=== PATIENT | female | born 1960 | race African-American/Black ===

== ENCOUNTER 2020-01-06 09:12 | Outpatient (CLI) | payer MEDICARE, MEDICAID, SELFPAY ==
[2020-01-06 09:51] LABS: Alveolar/Arterial O2 Gradient 55.7 mmHg; Base Excess ABG 1.4 mEq/l (+/-2.0); Fractional Inspired Oxygen 21 %; HCO3 ABG 25.8 mEq/l (22.0-26.0); Oxygen Content ABG 15.3 %vol (16.0-22.0); Oxyhemoglobin 79.1 % THb (90.0-100.0); PCO2 ABG 39.9 mmHg (35.0-45.0); Total Hemoglobin 13.8 g/dL (12.0-18.0); pH ABG 7.428 (7.350-7.450)
[2020-01-06 09:58] LABS: Modified Allen's Test Pass; Oxygen Saturation ABG 83.5 % (95.0-100.0); PO2 ABG 46.3 mmHg (80.0-100.0); Site Drawn LEFT RADIAL
[2020-01-06 09:59] LABS: Device ROOM AIR
[2020-01-06 10:00] VITALS: PULSE 92; O2SAT 92
[2020-01-06 10:02] VITALS: PULSE 100; O2SAT 87
[2020-01-06 10:03] VITALS: PULSE 102; O2SAT 86
[2020-01-06 10:04] VITALS: PULSE 103; O2SAT 88
[2020-01-06 10:06] VITALS: PULSE 103; O2SAT 89
--- NOTE | 2020-01-06 14:39 | HOMEO2EVAL ---
Home Oxygen Evaluation RC: Home Oxygen (O2) Evaluation Start: 01/06/20 09:33 Freq: ONCE Status: Active Protocol: RPE Activity Type Activity Date Activity User E-Sign Co-Sign Detail Recorded Client Recorded Date Recorded By Document 01/06/20 10:00 KRM [id number] 01/06/20 14:38 KRM Document 01/06/20 10:02 KRM [id number] 01/06/20 14:38 KRM Document 01/06/20 10:03 KRM [email or web address] 01/06/20 14:38 KRM Document 01/06/20 10:04 KRM [email or web address] 01/06/20 14:38 KRM Document 01/06/20 10:06 KRM [id number] 01/06/20 14:38 KRM 01/06/20 01/06/20 01/06/20 10:00 10:02 10:03 Home O2 Evaluation Test Phase Resting Exercise Exercise Oxygen Delivery Room Air Room Air Nasal Cannula Oxygen Flow Rate (L/min) 1 Pulse Oximetry (90-100 %) 92 87 L 86 L Pulse Rate (60-100 beats/min) 92 100 102 H Activity Tolerance Ambulation Distance (feet) Home Oxygen Evaluation Comments Treatment Charges O2 Evaluation 01/06/20 01/06/20 10:04 10:06 Home O2 Evaluation Test Phase Exercise Exercise Oxygen Delivery Nasal Cannula Nasal Cannula Oxygen Flow Rate (L/min) 2 3 Pulse Oximetry (90-100 %) 88 L 89 L Pulse Rate (60-100 beats/min) 103 H 103 H Activity Tolerance Poor Ambulation Distance (feet) 0 Home Oxygen Evaluation Comments PT. WHEEL CHAIR BOUND. EXERCISE INCLUDED PT. WAVING ARMS AND CLAPPING. REQUIRES 3LPM W /ACTIVITY. Treatment Charges
--- NOTE | 2020-01-07 23:37 | WPDPFTINT ---
PFT Interpretation PFT Interpretation: DOS: 01/06/2020 REQUESTING: Raj Croft REASON FOR TESTING: chronic respiratory failure PULMONARY FUNCTION TESTS Spirometry: FEV1 severely decreased 41% predicted, 0.92 L increased to 1.03 L after bronchodilator; FVC severely decreased 54%; decreased FEV1% consistent with airflow obstruction. There is a non-statistically significant change with bronchodilator administration, 12% in the FEV1, which is less than 200 ml. Lung volumes: Not performed; patient is in a wheelchair, cannot get into the body box. Diffusion: DLCO 34%, severely reduced. Flow volume loop: Scooping of the expiratory limb. IMPRESSION: Severe obstructive ventilatory impairment with severe decrease in diffusion. Lung volumes were not obtained as the patient is wheelchair-bound. Lack of response to bronchodilator should not preclude use if clinically indicated. ARTERIAL BLOOD GAS: Room air pH 7.42, pCO2 39.9, pO2 46.3, HCO3 25.8, O2 saturation 83.5%, hemoglobin 13.8 g/dL. This is a mixed venous blood gas. The patient had a saturation in the 90% range by oximeter. Normal acid-base status. Kristan Croft MD
== END 2020-01-06 09:13 | disposition home or self-care (01) ==
PROVIDERS: Visit Provider Internal Medicine Critical Care Medicine
DX: J96.11 Chronic respiratory failure with hypoxia (principal); R94.2 Abnormal results of pulmonary function studies
CPT/HCPCS: 36600; 82805; 94060; 94618; 94729

== ENCOUNTER 2020-10-18 20:26 | Emergency (ER) | payer MEDICARE, MEDICAID, SELFPAY ==
[2020-10-18 20:22] VITALS: BP 111/79; PULSE 88; RESP 20; TEMP 36.3; O2SAT 99
[2020-10-18] MEDS: MECLIZINE HCL 25 MG TABLET PO (21:01)
[2020-10-18] MEDS: SODIUM CHLORIDE 0.9% IV 1,000 ML 999 ML IV CONT (21:02)
--- NOTE | 2020-10-18 21:03 | ED.GENADULT ---
HPI - General Adult General Chief complaint: Urogenital-Female Stated complaint: UTI Time Seen by Provider: 10/18/20 20:27 History of Present Illness HPI narrative: Patient is a 59-year-old female who presents ER with concerns for urinary tract infection. Reports over the last couple days her suprapubic catheter started draining cloudy yellow urine. There is chronically sediment located within her catheter which is not new for her. She is having no fevers or chills or sweats. No abdominal pain. Patient does report she is also been having some dizziness that is rotational for the last couple days. Worse with head movements. She does report some chronic sinus congestion. No ear pressure or tenderness. She has no fevers or chills or sweats. Related Data Home Medications Medication Instructions Recorded Confirmed apixaban 5 mg tablet 5 mg PO BID 10/11/19 ascorbic acid (vitamin C) 1,000 mg 1 gm PO DAILY 10/11/19 tablet atorvastatin 10 mg tablet 10 mg PO DAILY 10/11/19 ferrous sulfate 324 mg (65 mg 324 mg PO DAILY 10/11/19 iron) tablet,delayed release fluticasone propionate 50 1 spray NASAL DAILY 10/11/19 mcg/actuation nasal spray,suspension furosemide 40 mg tablet 40 mg PO QAM 10/11/19 gabapentin 600 mg tablet 600 mg PO DAILY 10/11/19 gentamicin 0.3 % eye drops 1 drop EACH EYE Q4H 10/11/19 montelukast 5 mg chewable tablet 10 mg PO DAILY 10/11/19 polyethylene glycol 3350 17 17 gm PO DAILY 10/11/19 gram/dose oral powder Allergies Allergy/AdvReac Type Severity Reaction Status Date / Time moxifloxacin Allergy Unknown Rash Unverified 10/18/20 20:31 strawberry Allergy Unknown Itching Verified 10/18/20 20:31 Contrast Media Allergy Unknown Rash Uncoded 10/18/20 20:31 MOXIFLOXACIN HCL Allergy Unknown Rash Uncoded 10/18/20 20:31 Review of Systems Review of Systems: All systems reviewed & are unremarkable except as noted in HPI and below Constitutional: Constitutional: Denies chills, Denies fever(s) and Denies weakness ENT: Reports dizziness, Reports nasal congestion and Denies sore throat Cardiovascular: Cardiovascular: Denies chest pain, Denies rapid heart rate and Denies radiating jaw, neck or arm pain Respiratory: Respiratory: Denies cough and Denies dyspnea Gastrointestinal: Gastrointestinal: Denies abdominal pain, Denies nausea and Denies vomiting Genitourinary: Comments: Discoloration of urine PMFSH Past Medical History Medical History (Updated 10/18/20 @ 23:02 by Royce Carrillo MD) Closed fracture of distal end of right tibia with routine healing Diabetic peripheral neuropathy associated with type 1 diabetes mellitus Left foot pain Other closed fracture of lower end of femur Painful orthopaedic hardware Surgical History Surgical History (Updated 10/18/20 @ 21:45 by Royce Carrillo MD) History of foot surgery Amputations to toes of bilateral feet Family History Family History Father Malignant neoplasm of prostate Other Family history of sleep apnea Social History Social History Smoking status: Former smoker Smoking end date: 11/27/96 Alcohol intake: never Exam Narrative: Exam Narrative: GENERAL: Well-appearing, well-nourished, and in no acute distress. HEAD: Normocephalic, atraumatic. EYES: PERRL and EOMI. ENT: TMs normal bilaterally. CHEST: Clear to auscultation. No respiratory distress. HEART: Regular rate and rhythm. Normal peripheral pulses. ABDOMEN: Soft, nontender, nondistended. Suprapubic catheter present with cloudy yellow urine and large amount of sediment within the tube. NEURO: Alert and oriented x3. PSYCH: Normal mood and affect. Course Course Emergency Course: Patient informed of results. Dizziness improved with meclizine. Discharge home with meclizine and Keflex. Vital Signs Vital signs: Vital Signs Temperature 97
[2020-10-18 21:04] LABS: Basophils Percent Auto 0.3 % (0.2-1.2); Eosinophils Absolute Auto 0.1 K/mm3 (0-0.3); Eosinophils Percent Auto 1.2 % (0-4.4); Hematocrit 41.4 % (37.0-47.0); Hemoglobin 13.6 g/dL (12.0-15.0); Immature Granulocyte Absolute 0.01 K/mm3 (0.00-0.031); Immature Granulocyte Percent A 0.1 % (0-0.5); Lymphocytes Absolute Auto 1.48 K/mm3 (0.9-3.2); Lymphocytes Percent Auto 16.6 % (18.3-44.2); Mean Corpuscular HGB Conc 32.9 g/dl (32-36); Mean Corpuscular Hemoglobin 29.3 pg (26-34); Mean Corpuscular Volume 89.2 fl (80-100); Mean Platelet Volume 8.2 fl (7.4-10.4); Monocytes Absolute Auto 0.8 K/mm3 (0.1-0.6); Monocytes Percent Auto 8.4 % (2.6-8.5); Neutrophils Absolute Auto 6.5 K/mm3 (1.3-6.7); Neutrophils Percent Auto 73.4 % (45.5-73.1); Platelet Count Result 285 k/mm3 (150-375); Red Blood Count 4.64 M/mm3 (4.2-5.4); Red Cell Distribution Width 15.2 % (11.5-14.5); White Blood Count 8.9 K/mm3 (4.5-10.0)
[2020-10-18 21:15] LABS: Add Urine Microscopic? YES; Appearance Urine Cloudy (Clear); Bacteria Urine 2+ /hpf; Bilirubin Urine Negative (Negative); Color Urine Yellow (Yellow); Glucose Urine UA Negative (Negative); Ketones Urine Negative (Negative); Leukocyte Esterase Ur 3+ LEU/UL (Negative); Mucus Urine Few /lpf; Nitrate Urine Positive (Negative); Protein Urine Negative (Negative); Specific Grav Ur 1.011 (1.001-1.035); Squamous Epithelial Cell Urine Few /hpf (Few); Urobilinogen Urine Negative mg/dL (<2.0); WBC Urine 16-20 /hpf
[2020-10-18 21:19] LABS: Anion Gap 7 mmol/L (8-16); Blood Urea Nitrogen 14 mg/dL (7-17); Calcium 9.4 mg/dL (8.4-10.2); Carbon Dioxide 29 mmol/L (22-30); Chloride 89 mmol/L (98-107); Estimated Glomerular Filt Rate > 60; Glucose 126 mg/dL (65-105); Sodium 125 mmol/L (137-145)
[2020-10-18 21:21] LABS: Blood Urine Negative (Negative)
--- NOTE | 2020-10-18 23:38 | PC.NURSE ---
called [facility] to request transport. ETA [id number]
--- NOTE | 2020-10-19 00:09 | PC.NURSE ---
[facility] called and updated ETA to [id number]
--- NOTE | 2020-10-19 00:56 | PC.NURSE ---
[facility] called and update ETA to [phone]
--- NOTE | 2020-10-19 01:52 | PC.NURSE ---
[facility] called and updated eta to [phone]
--- NOTE | 2020-10-19 01:57 | PC.NURSE ---
called [facility] to request transport - declined.
--- NOTE | 2020-10-19 01:58 | PC.NURSE ---
Called [facility] to request transport. declined
--- NOTE | 2020-10-19 02:02 | PC.NURSE ---
called [facility] to request transport. declined.
--- NOTE | 2020-10-19 02:44 | PC.NURSE ---
[facility] called and updated the ETA to [phone]
--- NOTE | 2020-10-19 04:13 | PC.NURSE ---
called [facility] for ETA update. ETA [phone]
[2020-10-19 04:43] VITALS: BP 117/65; PULSE 91; RESP 17; TEMP 36.6; O2SAT 97
[2020-10-19 05:11] VITALS: BP 117/65; PULSE 91; RESP 17; TEMP 36.6; O2SAT 91
== END 2020-10-19 05:13 | disposition home or self-care (01) ==
PROVIDERS: Emergency Provider Emergency Medicine
DX: N39.0 Urinary tract infection, site not specified (principal); R42 Dizziness and giddiness; E10.42 Type 1 diabetes mellitus with diabetic polyneuropathy; Z79.01 Long term (current) use of anticoagulants; Z87.891 Personal history of nicotine dependence
CPT/HCPCS: 36415; 80048; 81001; 85025; 87077; 87086; 87088; 87186; 96360; 99283; A9270; J7030

== ENCOUNTER 2020-12-15 23:39 | Emergency (ER) | payer MEDICARE, MEDICAID, SELFPAY ==
--- NOTE | ~2020-12-15 | XR_ITS ---
EXAMINATION: XR chest 1V portable EXAM DATE: 12/16/2020 00:13 INDICATION: Shortness of breath. TECHNIQUE: Portable AP frontal chest x-ray was obtained. Comparison is made to prior examination from 01/14/2019. FINDINGS: Patient is rotated to the right. The cardiomediastinal silhouette is prominent but magnifie d on this AP technique. Mild hyper aeration. There is some indistinct reticulation, could be mild pul monary edema. No confluent consolidation. There is no pneumothorax suspected. There are no pleural ef fusions. There is pulmonary vascular congestion. IMPRESSION: Cardiomegaly, congestion, possible mild pulmonary edema. No confluent consolidation. Reviewed, dictated and finalized at location A. PAPER INSPECTOR IMPRESSION: Cardiomegaly, congestion, possible mild pulmonary edema. No conflue nt consolidation.
[2020-12-15 23:45] VITALS: BP 139/100; PULSE 88; RESP 16; TEMP 36.7; O2SAT 96
--- NOTE | 2020-12-15 23:54 | ED.ANXIETY ---
HPI - Anxiety General Chief Complaint: Anxiety Stated Complaint: difficulty breathing Time Seen by Provider: 12/15/20 23:41 History of Present Illness HPI narrative: 60 yo female w/ h/o chronic respiratory failure, interstitial lung disease presents to the ED for SOB. She reports that she was feeling strange today. She reports dizziness and confusion. She called for EMS and when they arrived they found that her oxygen concentrator was not working. They placed her on their oxygen and her symptoms resolved. Related Data Home Medications Medication Instructions Recorded Confirmed apixaban 5 mg tablet 5 mg PO BID 10/11/19 ascorbic acid (vitamin C) 1,000 mg 1 gm PO DAILY 10/11/19 tablet atorvastatin 10 mg tablet 10 mg PO DAILY 10/11/19 ferrous sulfate 324 mg (65 mg 324 mg PO DAILY 10/11/19 iron) tablet,delayed release fluticasone propionate 50 1 spray NASAL DAILY 10/11/19 mcg/actuation nasal spray,suspension furosemide 40 mg tablet 40 mg PO QAM 10/11/19 gabapentin 600 mg tablet 600 mg PO DAILY 10/11/19 gentamicin 0.3 % eye drops 1 drop EACH EYE Q4H 10/11/19 montelukast 5 mg chewable tablet 10 mg PO DAILY 10/11/19 polyethylene glycol 3350 17 17 gm PO DAILY 10/11/19 gram/dose oral powder Allergies Allergy/AdvReac Type Severity Reaction Status Date / Time moxifloxacin Allergy Unknown Rash Unverified 10/18/20 20:31 strawberry Allergy Unknown Itching Verified 10/18/20 20:31 Contrast Media Allergy Unknown Rash Uncoded 10/18/20 20:31 MOXIFLOXACIN HCL Allergy Unknown Rash Uncoded 10/18/20 20:31 Review of Systems Review of Systems: All systems reviewed & are unremarkable except as noted in HPI and below Constitutional: Constitutional: Denies fever(s) Cardiovascular: Cardiovascular: Denies chest pain Respiratory: Respiratory: Reports dyspnea Neurologic: Reports confusion, Reports dizziness and Reports weakness Psychiatric: Psychiatric: Reports anxiety [facility] Past Medical History Medical History Closed fracture of distal end of right tibia with routine healing Diabetic peripheral neuropathy associated with type 1 diabetes mellitus Left foot pain Other closed fracture of lower end of femur Painful orthopaedic hardware Surgical History Surgical History History of foot surgery Amputations to toes of bilateral feet Family History Family History Father Malignant neoplasm of prostate Other Family history of sleep apnea Social History Social History Smoking status: Former smoker Smoking end date: 11/27/96 Alcohol intake: never Gender identity (if verbalized by the patient): Female Exam Const: General: no acute distress and alert Nutritional Appearance: obese Orientation/consciousness: patient oriented x3 HENMT: Head: normal to inspection Resp: Effort & Inspection: normal respiratory effort Auscultation: wheezes Cardio: Rate: regular rate Rhythm: regular rhythm Skin: General skin exam: normal color Neuro: General: patient oriented x3, moves all extremities and no focal motor deficits Speech: normal speech Gait exam (Neuro): Normal gait present Extrem: General: normal to inspection and no edema Course Vital Signs Vital signs: Vital Signs Temperature 36.7 C 12/15/20 23:45 Pulse Rate 88 12/15/20 23:45 Respiratory Rate 16 12/15/20 23:45 Blood Pressure 139/100 H 12/15/20 23:45 Pulse Oximetry 96 12/15/20 23:45 Temperature 37.0 C 12/16/20 01:49 Pulse Rate 81 12/16/20 01:49 Respiratory Rate 16 12/16/20 01:49 Blood Pressure 119/79 12/16/20 01:49 Pulse Oximetry 100 12/16/20 01:49 MDM - Anxiety MDM Narrative Medical decision making narrative: Symptoms resolved on baseline oxygen. She reports that she has othe
[2020-12-16 00:18] LABS: Glucose Point of Care 145 (65-105)
--- NOTE | 2020-12-16 01:02 | PC.NURSE ---
called [facility] to request transport. ETA [phone]
[2020-12-16 01:49] VITALS: BP 119/79; PULSE 81; RESP 16; TEMP 37; O2SAT 100
== END 2020-12-16 01:50 | disposition home or self-care (01) ==
PROVIDERS: Emergency Provider Emergency Medicine; PCP Family Medicine
DX: R06.02 Shortness of breath (principal); J96.10 Chronic respiratory failure, unspecified whether with hypoxia or hypercapnia; J84.9 Interstitial pulmonary disease, unspecified; E10.42 Type 1 diabetes mellitus with diabetic polyneuropathy; Z87.891 Personal history of nicotine dependence; I51.7 Cardiomegaly; R91.8 Other nonspecific abnormal finding of lung field; Z79.01 Long term (current) use of anticoagulants; Z99.81 Dependence on supplemental oxygen
CPT/HCPCS: 71045; 99283

== ENCOUNTER 2020-12-31 12:10 | Emergency (ER) | payer MEDICARE, MEDICAID, SELFPAY ==
[2020-12-31 12:23] VITALS: BP 131/84; PULSE 83; RESP 18; TEMP 36.4; O2SAT 100
--- NOTE | 2020-12-31 12:46 | PC.NURSE ---
EDP [facility]ELAT AT BEDSIDE FOR I&D, WOUND PACKED AND DRESSED BY DR WHYTE W/ GAUZE AND TAPE.
--- NOTE | 2020-12-31 12:51 | ED.GENADULT ---
HPI - General Adult General Chief complaint: Wound/Laceration Stated complaint: boil to inner leg Time Seen by Provider: 12/31/20 12:13 Source: patient Mode of arrival: EMS Limitations: no limitations History of Present Illness HPI narrative: A 60-year-old female comes into the emergency department with complaints of a boil in her groin. Patient states that it become exquisitely tender. She has seen her doctor already has received a prescription for Bactrim DS. She states that she has been taking the tablets but that her symptoms have not improved. She notes that she has a home health nurse who states that there was some pink drainage coming from the area. She notes that she has not tried to pop it or done anything else to but does note that there is some foul smell coming from the area. Related Data Home Medications Medication Instructions Recorded Confirmed apixaban 5 mg tablet 5 mg PO BID 10/11/19 ascorbic acid (vitamin C) 1,000 mg 1 gm PO DAILY 10/11/19 tablet atorvastatin 10 mg tablet 10 mg PO DAILY 10/11/19 ferrous sulfate 324 mg (65 mg 324 mg PO DAILY 10/11/19 iron) tablet,delayed release fluticasone propionate 50 1 spray NASAL DAILY 10/11/19 mcg/actuation nasal spray,suspension furosemide 40 mg tablet 40 mg PO QAM 10/11/19 gabapentin 600 mg tablet 600 mg PO DAILY 10/11/19 gentamicin 0.3 % eye drops 1 drop EACH EYE Q4H 10/11/19 montelukast 5 mg chewable tablet 10 mg PO DAILY 10/11/19 polyethylene glycol 3350 17 17 gm PO DAILY 10/11/19 gram/dose oral powder Allergies Allergy/AdvReac Type Severity Reaction Status Date / Time moxifloxacin Allergy Unknown Rash Unverified 10/18/20 20:31 strawberry Allergy Unknown Itching Verified 10/18/20 20:31 Contrast Media Allergy Unknown Rash Uncoded 10/18/20 20:31 MOXIFLOXACIN HCL Allergy Unknown Rash Uncoded 10/18/20 20:31 Review of Systems Review of Systems: Narrative: CONSTITUTIONAL: Denies fever, chills, or sweats. EYES: Denies visual changes, redness, or discharge. ENT: Denies rhinorrhea, congestion, sore throat, or otalgia. CARDIOVASCULAR: Denies chest pain, palpitations, or edema. RESPIRATORY: Denies cough or dyspnea. GASTROINTESTINAL: Denies abdominal pain, nausea, vomiting, or diarrhea. GENITOURINARY: Denies dysuria or hematuria. Groin abscess SKIN: Denies rash or itching. MUSCULOSKELETAL: Denies back pain, joint pain, or myalgia. NEUROLOGIC: Denies headache, numbness, dizziness, or weakness. PSYCHIATRIC: Denies anxiety or depression. [facility] Past Medical History Medical History Closed fracture of distal end of right tibia with routine healing Diabetic peripheral neuropathy associated with type 1 diabetes mellitus Left foot pain Other closed fracture of lower end of femur Painful orthopaedic hardware Surgical History Surgical History History of foot surgery Amputations to toes of bilateral feet Family History Family History Father Malignant neoplasm of prostate Other Family history of sleep apnea Social History Social History Smoking status: Former smoker Smoking end date: 11/27/96 Alcohol intake: never Gender identity (if verbalized by the patient): Female Exam Narrative: Exam Narrative: GENERAL: Well-appearing, well-nourished, and in no acute distress. HEAD: Normocephalic, atraumatic. EYES: PERRLA and EOMI. ENT: Nares clear, no rhinorrhea or epistaxis. Mucous membranes moist. Oropharynx without tonsillar hypertrophy exudate or other lesions. Bilateral TMs pearly galdamez nonbulging NECK: Supple. No adenopathy or masses. No carotid bruits or JVD CHEST: Clear to auscultation. No respiratory distress. No wheezes rales or rhonchi HEART: Regular rate and rhythm. No murmur heard. Normal peripheral pulses. ABDOMEN
--- NOTE | 2020-12-31 13:15 | PC.NURSE ---
PERSONNEL COUNSELOR [place] TO CALL FOR EMS AT THIS TIME.
[2020-12-31 13:54] VITALS: BP 133/75; PULSE 78; RESP 16; O2SAT 100
== END 2020-12-31 13:56 | disposition home or self-care (01) ==
LOC: ANHED 12:58
PROVIDERS: Emergency Provider Emergency Medicine; PCP Family Medicine
DX: L02.214 Cutaneous abscess of groin (principal); E10.42 Type 1 diabetes mellitus with diabetic polyneuropathy; Z87.891 Personal history of nicotine dependence
CPT/HCPCS: 10061; 99282

== ENCOUNTER 2021-05-21 18:07 | Emergency (ER) | payer MEDICARE, MEDICAID, SELFPAY ==
[2021-05-21 19:07] VITALS: BP 106/64; PULSE 91; RESP 18; TEMP 36.3; O2SAT 100
--- NOTE | 2021-05-21 19:12 | PC.NURSE ---
pt to triage, pt tells this RN ' I dont appreciate you talking has loud as you did to me out there Informed pt that i did not speak to her loudly and i apologize if she thinks i did. Pt states didn't you see everyone get quite and look when you talked to me? Pt then refuses to answer [employer] scale or how much she weighs. Pt then is complaining about sitting in wheelchair. I asked pt is she wanted to sit a regular seat and pt ignored this RN. Pt is wheeled back to triage where she called this RN a bitch.
--- NOTE | 2021-05-21 20:01 | PC.NURSE ---
Patient demanding her IV be removed, stated she is leaving and not waiting anymore. Patient IV removed and her family member took her home. Left ED at 1999.
== END 2021-05-21 21:22 | disposition left against medical advice (07) ==
LOC: ANHED 20:24
DX: Z53.21 Procedure and treatment not carried out due to patient leaving prior to being seen by health care provider (principal)
CPT/HCPCS: 99199

== ENCOUNTER 2021-08-19 15:55 | Outpatient (CLI) | payer MEDICARE, MEDICAID, SELFPAY ==
--- NOTE | ~2021-08-19 | XR_ITS ---
EXAMINATION: XR foot LT min 3V DATE: 08/19/2021 16:34 INDICATION: Left foot injury with pain at the second toe and heel. Gout. TECHNIQUE: Dorsoplantar, two oblique and lateral views of the left foot were obtained. COMPARISON: None. FINDINGS: Partial left second toe amputation across the neck of the proximal phalanx. Chronic osteotomies at th e head of the first metatarsal and of the shortened first proximal phalanx.. Third-fifth toes are cla wed. Suggestion of an old healed fracture deformity at the neck of the fifth metatarsal. No acute fra ctures identified. Polyarticular osteoarthritis, severe at the first metatarsophalangeal and second d istal interphalangeal joint, moderate severity at the majority the remaining interphalangeal joints a nd mild at the left ankle and multiple joints in the mid and hindfoot. Moderate-sized osteophyte at t he cephalad margin of the posterior tuberosity of the calcaneus. Diffuse osteopenia. Heterotopic ossi fications in the soft tissues lateral to the fifth metatarsal diaphysis. Diffuse soft tissue swelling about the left foot and ankle. IMPRESSION: 1. Chronic posttraumatic, postoperative and degenerative changes in the left foot as detailed above. No acute osseous abnormality. Reviewed, dictated and finalized at location A. IMPRESSION: 1. Chronic posttraumatic, postoperative and degenerative changes in the left fo ot as detailed above. No acute osseous abnormality.
== END 2021-08-19 15:56 | disposition home or self-care (01) ==
DX: S99.922A Unspecified injury of left foot, initial encounter (principal); M79.89 Other specified soft tissue disorders; M85.871 Other specified disorders of bone density and structure, right ankle and foot
CPT/HCPCS: 73630

== ENCOUNTER 2022-02-25 21:55 | Inpatient (IN) | payer MEDICARE, MEDICAID, SELFPAY ==
--- NOTE | ~2022-02-25 | XR_ITS ---
EXAMINATION: XR chest 1V portable DATE: 02/25/2022 23:04 INDICATION: Shortness of breath. TECHNIQUE: A single frontal view of the chest was obtained. COMPARISON: Chest single view 12/16/2020, CT abdomen and pelvis 08/02/2019 FINDINGS: The patient is rotated to her right. The lungs are hyperexpanded with a diffuse interstitia l pattern, consistent with emphysema. There are airspace opacities in right mid lower lung zone. No p neumothorax. Cardiomegaly is noted. IMPRESSION: 1. Airspace opacities in right midlung zone, which may be atelectasis, pneumonia, or pleural effusion in the minor fissure. 2. Emphysema. 3. Cardiomegaly. Reviewed, dictated and finalized at location A. IMPRESSION: 1. Airspace opacities in right midlung zone, which may be atelectasis, pneumoni a, or pleural effusion in the minor fissure. 2. Emphysema. 3. Cardiomegaly.
--- NOTE | ~2022-02-25 | XR_ITS ---
EXAMINATION: XR chest 1V portable DATE: 03/04/2022 06:25 INDICATION: Pneumonia. TECHNIQUE: A single frontal view of the chest was obtained. COMPARISON: Chest single view 02/27/2022, chest CT 02/26/2022 FINDINGS: There are lucencies in the lungs, consistent with emphysema. Again seen is volume loss of r ight hemithorax with rightward shift of the mediastinum. There are airspace opacities in the lower gerardo ng zones. No pleural effusion or pneumothorax. The heart size is normal. IMPRESSION: 1. Stable volume loss of right hemithorax and airspace opacities in the lower lung zones, consistent with atelectasis versus pneumonia. 2. Emphysema. Reviewed, dictated and finalized at location A. IMPRESSION: 1. Stable volume loss of right hemithorax and airspace opacities in the lower l nereyda zones, consistent with atelectasis versus pneumonia. 2. Emphysema.
--- NOTE | ~2022-02-25 | CT_ITS ---
EXAMINATION: CT diagnostic chest wo con DATE: 02/26/2022 00:53 INDICATION: Shortness of breath and productive cough TECHNIQUE: Computed tomography (CT) of the chest was performed without intravenous contrast. The dose -length product (DLP) was 1001.49 mGy-cm. Automated exposure control and iterative reconstruction twyla hnique were employed. COMPARISON: 09/11/2016, 05/27/2014 FINDINGS: There is moderate emphysema. There are airspace opacities of the right middle lobe. There i s a chronic 8 mm nodule of the right upper lobe adjacent to the minor fissure without significant miranda nge since 2013. There is no pleural effusion or pneumothorax. No pathologically enlarged thoracic lym ph nodes are identified. The heart size is normal. Calcified coronary artery atherosclerosis is noted . There is severe thoracic spondylosis. There are multiple masses of the partially imaged kidneys wit h attenuation ranging from fluid to that of hemorrhagic cysts and multiple intermediate attenuation m asses. IMPRESSION: 1. Airspace opacities of the right middle lobe consistent with atelectasis versus pneumonia. Radiogra phic follow-up to resolution after appropriate therapy is recommended. 2. Multiple indeterminate masses of the kidneys. Follow-up by CT or MRI without and with contrast is recommended. Reviewed, dictated and finalized at location A. IMPRESSION: 1. Airspace opacities of the right middle lobe consistent with atelectasis vers us pneumonia. Radiographic follow-up to resolution after appropriate therapy is recommended. 2. Multiple indeterminate masses of the kidneys. Follow-up by CT or MRI without and with contrast is recommended.
--- NOTE | ~2022-02-25 | XR_ITS ---
EXAMINATION: XR chest 1V portable INDICATION: Shortness of breath TECHNIQUE: Portable AP chest at 1018 hours COMPARISON: 02/26/2022 FINDINGS: Airspace opacities of the right middle and lower lobes persist but have improved. There is no pleural effusion or pneumothorax. The cardiomediastinal silhouette is normal. IMPRESSION: 1. Persistent but improving airspace opacities of the right middle and lower lobes, likely resolving atelectasis/pneumonia. Reviewed, dictated and finalized at location A. IMPRESSION: 1. Persistent but improving airspace opacities of the right middle and lower lo bes, likely resolving atelectasis/pneumonia.
[2022-02-25 22:04] VITALS: BP 117/61; PULSE 103; RESP 23; O2SAT 91
[2022-02-25 22:15] VITALS: O2SAT 91
[2022-02-25 22:40] LABS: Alveolar/Arterial O2 Gradient 114.2 mmHg; Base Excess ABG 5.7 mEq/l (+/-2.0); Carboxyhemoglobin 0.9 % THb (0-2.0); Fractional Inspired Oxygen 32 %; HCO3 ABG 31.3 mEq/l (22.0-26.0); Oxygen Content ABG 16.3 %vol (16.0-22.0); Oxygen Saturation ABG 89.3 % (95.0-100.0); PCO2 ABG 49.5 mmHg (35.0-45.0); PO2 FiO2 Ratio Arterial Blood 1.75 %; Reduced Hemoglobin 11.7 %THb (0-5.0); Total Hemoglobin 13.3 g/dL (12.0-18.0); pH ABG 7.419 (7.350-7.450)
[2022-02-25 22:42] LABS: Modified Allen's Test Pass; Oxyhemoglobin 87.4 % THb (90.0-100.0); Site Drawn LEFT RADIAL
[2022-02-25 22:43] LABS: Device NASAL CANNULA
--- NOTE | 2022-02-25 22:56 | ED.SOB ---
HPI - SOB/Dyspnea General Chief Complaint: Shortness of Breath/Dyspnea <Samantha Bolanos PA-C - Last Filed: 02/26/22 01:13> Stated Complaint: UNKNOWN <SUSI Mayer Last Filed: 02/26/22 01:13> Time Seen by Provider: 02/25/22 22:19 <SUSI Mayer Last Filed: 02/26/22 01:13> Source: patient <SUSI Mayer Last Filed: 02/26/22 01:13> Mode of arrival: EMS <SUSI Mayer Last Filed: 02/26/22 01:13> Limitations: no limitations <SUSI Mayer Last Filed: 02/26/22 01:13> History of Present Illness HPI Narrative: This is a 61-year-old female that presents to the emergency department for ongoing cold symptoms over the last 5 days. Reports a productive cough, congestion, and shortness of breath. Reports she had relative that was recently over with similar symptoms. She is not COVID or influenza vaccinated. She has history of COPD and is chronically on 3 to 4 L via nasal cannula. Was supposed to have an appointment with her soil conservation aide today. Denies fever or chest pain. <Samantha Bolanos PA-C - Last Filed: 02/26/22 01:13> Related Data Home Medications: Home Medications Medication Instructions Recorded Confirmed apixaban 5 mg tablet 5 mg PO Q12H 10/11/19 02/26/22 ascorbic acid (vitamin C) 1,000 mg 1 gm PO TID 10/11/19 02/26/22 tablet atorvastatin 10 mg tablet 10 mg PO HS 10/11/19 02/26/22 ferrous sulfate 324 mg (65 mg 324 mg PO HS 10/11/19 02/26/22 iron) tablet,delayed release furosemide 40 mg tablet 40 mg PO TID 10/11/19 02/26/22 gabapentin 600 mg tablet 600 mg PO QID 10/11/19 02/26/22 gentamicin 0.3 % eye drops 1 drop EACH EYE DAILY 10/11/19 02/26/22 montelukast 5 mg chewable tablet 10 mg PO DAILY 10/11/19 02/26/22 polyethylene glycol 3350 17 17 gm PO DAILY 10/11/19 02/26/22 gram/dose oral powder baclofen 10 mg PO QID 02/26/22 02/26/22 baclofen 20 mg PO QID 02/26/22 02/26/22 cranberry 500 mg PO 1200 02/26/22 02/26/22 fluconazole 150 mg PO TID 02/26/22 02/26/22 gabapentin 400 mg PO QID 02/26/22 02/26/22 lorazepam 1 mg PO QID PRN 02/26/22 02/26/22 metoprolol succinate 25 mg PO 1200 02/26/22 02/26/22 omeprazole 20 mg PO DAILY 02/26/22 02/26/22 oxycodone-acetaminophen 10 - 325 tablet PO TID PRN 02/26/22 02/26/22 potassium chloride 20 meq PO Q12H 02/26/22 02/26/22 sitagliptin [Januvia] 100 mg PO DAILY 02/26/22 02/26/22 tramadol 50 mg PO QID PRN 02/26/22 02/26/22 verapamil 180 mg PO HS 02/26/22 02/26/22 vitamin B complex 1 tablet PO DAILY 02/26/22 02/26/22 <Samantha Bolanos PA-C - Last Filed: 02/26/22 01:13> Allergies/Adverse Reactions: Allergies Allergy/AdvReac Type Severity Reaction Status Date / Time moxifloxacin Allergy Unknown Rash Verified 02/25/22 23:47 strawberry Allergy Unknown Itching Verified 02/25/22 23:47 Contrast Media Allergy Unknown Rash Uncoded 02/25/22 23:47 MOXIFLOXACIN HCL Allergy Unknown Rash Uncoded 02/25/22 23:47 <Samantha Bolanos PA-C - Last Filed: 02/26/22 01:13> Review of Systems Review of Systems: CONSTITUTIONAL: Denies fever ENT: Reports congestion CARDIOVASCULAR: Denies chest pain, or edema. RESPIRATORY: Reports cough and dyspnea. <SUSI Mayer Last Filed: 02/26/22 01:13> All systems reviewed & are unremarkable except as noted in HPI and below <Samantha Bolanos PA-C - Last Filed: 02/26/22 01:13> [facility] Past Medical History Medical History: Medical History Closed fracture of distal end of right tibia with routine healing Diabetic peripheral neuropathy associated with type 1 diabetes mellitus Left foot pain Other closed fracture of lower end of femur Painful orthopaedic hardware <Samantha Bolanos PA-C - Last Filed: 02/26/22 01:13> Surgical History Surgical History: Surgical History History of foot surgery Amputations to toes of bilateral feet <Samantha
[2022-02-25] MEDS: IPRATROPIUM BR 0.02% INH SOLN 0.5 MG/2.5 ML VIAL INHALATION (23:06)
[2022-02-25] MEDS: ALBUTEROL SULFATE NEB 2.5 MG/0.5 ML INH 5 MG INHALATION (23:06)
[2022-02-25 23:10] VITALS: PULSE 91; RESP 16
[2022-02-25 23:15] VITALS: PULSE 83; RESP 13
[2022-02-25] MEDS: methylPREDNISolone SOD SUCC 125 MG VIAL IV PUSH (23:47)
[2022-02-26] VITALS (25 sets, daily range): BP systolic 101–152; BP diastolic 60–83; PULSE 78–99; RESP 16–26; TEMP 35.9–36.6; O2SAT 92–100; BMI 44.1
[2022-02-26 00:03] LABS: Alanine Aminotransferase 18 U/L (4-35); Albumin Level 4.2 g/dL (3.5-5.1); Alkaline Phosphatase 115 U/L (38-126); Anion Gap 7 mmol/L (8-16); Aspartate Amino Transferase 39 U/L (14-36); Bilirubin,Total 0.2 mg/dL (0.2-1.3); Blood Urea Nitrogen 11 mg/dL (7-17); Calcium 9.1 mg/dL (8.4-10.2); Carbon Dioxide 32 mmol/L (22-30); Chloride 94 mmol/L (98-107); Estimated CRCL calculation 105 ml/min; Estimated Glomerular Filt Rate > 60; Glucose 152 mg/dL (65-110); Potassium 4.1 mmol/L (3.4-5.0); Sodium 133 mmol/L (137-145)
[2022-02-26 00:09] LABS: Partial Thromboplastin Time 27.8 SECONDS (22.3-36.8); Prothrombin Time 13.1 Seconds (11.1-14.7)
[2022-02-26 00:11] LABS: Basophils Percent Auto 0.3 % (0.2-1.2); Eosinophils Absolute Auto 0.1 K/mm3 (0-0.3); Eosinophils Percent Auto 0.5 % (0-4.4); Hematocrit 41.7 % (37.0-47.0); Hemoglobin 12.9 g/dL (12.0-15.0); Immature Granulocyte Absolute 0.03 K/mm3 (0.00-0.031); Immature Granulocyte Percent A 0.3 % (0-0.5); Lymphocytes Absolute Auto 1.12 K/mm3 (0.9-3.2); Lymphocytes Percent Auto 11.7 % (18.3-44.2); Mean Corpuscular HGB Conc 30.9 g/dl (32-36); Mean Corpuscular Hemoglobin 28.6 pg (26-34); Mean Corpuscular Volume 92.5 fl (80-100); Mean Platelet Volume 8.5 fl (7.4-10.4); Monocytes Absolute Auto 0.8 K/mm3 (0.1-0.6); Monocytes Percent Auto 7.8 % (2.6-8.5); Neutrophils Absolute Auto 7.6 K/mm3 (1.3-6.7); Neutrophils Percent Auto 79.4 % (45.5-73.1); Platelet Count Result 355 k/mm3 (150-375); Red Blood Count 4.51 M/mm3 (4.2-5.4); Red Cell Distribution Width 14.9 % (11.5-14.5); White Blood Count 9.6 K/mm3 (4.5-10.0)
[2022-02-26 00:15] LABS: NT Pro B Type Natriuretic Pept 128 pg/mL (5-100)
[2022-02-26] MEDS: ALBUTEROL SULFATE NEB 2.5 MG/0.5 ML INH 5 MG INHALATION (00:18)
[2022-02-26] MEDS: IPRATROPIUM BR 0.02% INH SOLN 0.5 MG/2.5 ML VIAL INHALATION ×4 (00:18→23:52)
[2022-02-26] MEDS: LORazepam INJ (*CRX) 2 MG/ML VIAL 0.5 MG IV PUSH (00:24)
[2022-02-26 00:31] LABS: Influenza A QL RT-PCR Negative (Negative); Influenza B QL RT-PCR Negative (Negative); SARS-CoV-2 RNA PCR Negative
--- NOTE | 2022-02-26 00:32 | ECG_ITS ---
Measurements Intervals [place] Rate: 91 P: 56 PA: 152 QRS: 60 QRSD: 102 T: 73 QT: 396 QTc: 487 Interpretive Statements SINUS RHYTHM INCOMPLETE RIGHT BUNDLE BRANCH BLOCK [90+ ms QRS DURATION, TERMINAL R IN V1/V2, 40+ ms S IN I/aVL/V4/V5/V6] BASELINE ARTIFACT BORDERLINE ECG COMPARED TO ECG 01/15/2019 07:15:09 NO SIGNIFICANT CHANGES Electronically Signed On 02-26-2022 16:45:33 CDT by Brett Crandall M.D.
--- NOTE | 2022-02-26 02:07 | ADMGEN ---
This patient, Ke Garnica, was admitted to IMU Room 203-01. Patient/family oriented to hospital policies and general routines including ID bracelet, bed and alarms, visiting hours, pain management, procedures, bathroom and other care routines, personal items, smoking policy, room service/diet, and visiting hours. Information on how to activate the Rapid Response Team has been discussed. Patient/Family are encouraged to report perceived risks to care and to ask questions if they do not understand what they are told or what they should do.
[2022-02-26] MEDS: WATER FOR IRRIGATION, STERILE 1,000 ML BOTTLE 1000 ML (02:27)
[2022-02-26 03:03] LABS: Add Urine Microscopic? YES; Appearance Urine Cloudy (Clear); Bacteria Urine 1+ /hpf; Bilirubin Urine Negative (Negative); Color Urine Amber (Yellow); Glucose Urine UA Negative (Negative); Ketones Urine Negative (Negative); Leukocyte Esterase Ur 3+ LEU/UL (Negative); Nitrate Urine Negative (Negative); Protein Urine 1+ mg/dL (Negative); Specific Grav Ur 1.018 (1.001-1.035); Squamous Epithelial Cell Urine Few /hpf (Few); Urobilinogen Urine Negative mg/dL (<2.0); WBC Urine >75 /hpf
[2022-02-26 03:05] LABS: Blood Urine Negative (Negative)
[2022-02-26] MEDS: ALBUTEROL SULFATE NEB 2.5 MG/0.5 ML INH INHALATION ×3 (08:26→23:52)
--- NOTE | 2022-02-26 08:43 | PM.IMPN ---
Progress Note: A&P Assessment and Plan (1) Acute on chronic respiratory failure: Qualifiers: Respiratory failure complication: hypoxia Qualified Code(s): J96.21 - Acute and chronic respiratory failure with hypoxia Code(s): J96.20 - Acute and chronic respiratory failure, unspecified whether with hypoxia or hypercapnia Status: Acute Assessment and Plan: Multifactorial most likely related to community-acquired pneumonia COPD exacerbation CHF exacerbation pulmonary hypertension diuresis nebulizer treatment IV steroid antibiotics (2) Community acquired pneumonia: Qualifiers: Laterality: right Lung location: lower lobe of lung Qualified Code(s): J18.9 - Pneumonia, unspecified organism Code(s): J18.9 - Pneumonia, unspecified organism Status: Acute Assessment and Plan: IV azithromycin Follow-up blood culture (3) Pulmonary hypertension: Code(s): I27.20 - Pulmonary hypertension, unspecified Status: Acute Assessment and Plan: Continue home treatment (4) Acute exacerbation of CHF (congestive heart failure): Code(s): I50.9 - Heart failure, unspecified Status: Acute Assessment and Plan: Lasix monitor intake and output daily weight Additional Plan Currently on verapamil and anticoagulated Subjective Date/time seen: 02/26/22 08:43 Interval history: 61 years old female with past medical history of COPD presented to the hospital with shortness of breath was found to have acute hypoxemic respiratory failure secondary to COPD exacerbation CHF exacerbation and community-acquired pneumonia treated with nebulizer treatment steroid antibiotic At home patient use 4 L oxygen Patient is short of breath on oxygen Patient denies fever headache chest pain I am seeing the patient for shortness of breath Exam Narrative: Alert Chest bilateral wheezing crackles Abdomen nontender nondistended CVS S1 + S2 Bilateral lower extremities positive edema Objective Data Vital Signs Vital Signs: Vital Signs - 24 hr 02/26/22 11:02 02/26/22 12:00 02/26/22 12:45 Temperature 97.2 F L Pulse Rate 99 84 89 Respiratory Rate 26 H 20 Blood Pressure 152/83 H Pulse Oximetry 95 02/26/22 13:10 02/26/22 15:36 02/26/22 16:00 Temperature 96.6 F L Pulse Rate 88 92 92 Respiratory Rate 20 20 Blood Pressure 148/62 H Pulse Oximetry 95 94 02/26/22 20:00 02/26/22 20:04 02/26/22 20:14 Temperature Pulse Rate 90 78 78 Respiratory Rate 23 H 20 20 Blood Pressure Pulse Oximetry 100 02/26/22 22:00 02/26/22 23:13 02/26/22 23:45 Temperature 97.9 F Pulse Rate 78 80 78 Respiratory Rate 16 22 H 20 Blood Pressure 121/65 Pulse Oximetry 100 100 02/26/22 23:53 02/26/22 23:55 02/27/22 00:00 Temperature 96.9 F L Pulse Rate 78 78 71 Respiratory Rate 20 20 16 Blood Pressure 125/80 Pulse Oximetry 97 100 02/27/22 02:12 02/27/22 03:20 02/27/22 03:30 Temperature Pulse Rate 88 76 76 Respiratory Rate 18 18 18 Blood Pressure Pulse Oximetry 97 97 02/27/22 04:00 02/27/22 08:37 02/27/22 08:39 Temperature Pulse Rate 78 83 86 Respiratory Rate 18 18 Blood Pressure Pulse Oximetry 97 Intake/Output Intake/Output: Intake & Output 02/24/22 02/25/22 02/26/22 02/27/22 23:59 23:59 23:59 23:59 Intake Total 1934 500 Output Total 2600 1000 Balance -666 -500 Meds/Results Medications: Active Medications Generic Name Dose Route Start Last Admin Trade Name Freq PRN Reason Stop Dose Admin Albuterol 2.5 mg 02/26/22 08:00 02/27/22 08:33 Albuterol Sulfate Neb 2.5 Mg/0.5 Ml Inh INHALATION 2.5 mg Q4HRT COTY Administration Apixaban 5 mg 02/26/22 09:15 02/26/22 21:08 Apixaban 5 Mg Tablet PO 5 mg Q12HR COTY Administration Ascorbic Acid 1,000 mg 02/26/22 09:00 02/26/22 17:46 Ascorbic Acid 500 Mg Tablet PO 1,000 mg TID COTY Administration Atorvastatin Calc
[2022-02-26] MEDS: ASCORBIC ACID 500 MG TABLET 1000 MG PO ×3 (09:12→17:46)
[2022-02-26] MEDS: PANTOPRAZOLE 40 MG TABLET PO (09:12)
[2022-02-26] MEDS: FUROSEMIDE 40 MG TABLET PO ×3 (09:13→17:46)
[2022-02-26] MEDS: GENTAMICIN SULFATE 0.3% OP SOL 5 ML BTL 1 DROP EACH EYE (09:13)
[2022-02-26] MEDS: polyethylene glycoL 3350 17 GM POWD.PACK PO (09:13)
[2022-02-26] MEDS: MONTELUKAST SODIUM 10 MG TABLET PO (09:13)
[2022-02-26] MEDS: BACLOFEN 10 MG TABLET PO (09:17)
[2022-02-26] MEDS: BACLOFEN 10 MG TABLET 20 MG PO (09:17)
[2022-02-26] MEDS: GABAPENTIN 400 MG CAPSULE PO ×4 (09:23→20:00)
[2022-02-26] MEDS: POTASSIUM CHLORIDE 20 MEQ TABLET.ER PO ×2 (09:24→20:00)
[2022-02-26] MEDS: APIXABAN 5 MG TABLET PO ×2 (09:24→21:08)
[2022-02-26] MEDS: METOPROLOL SUCCINATE EXT REL 25 MG TABCR PO (11:02)
[2022-02-26] MEDS: GABAPENTIN 300 MG CAPSULE 600 MG PO ×4 (11:02→20:02)
[2022-02-26 12:35] LABS: Glucose Point of Care 174 mg/dl (65-105)
[2022-02-26] MEDS: BACLOFEN 10 MG TABLET 30 MG PO ×3 (12:44→20:01)
--- NOTE | 2022-02-26 12:58 | PC.NURSE ---
This patient, Ke Garnica, was transferred to [ [id number]] on 02/26/22 at 1258. Personal belongings sent with patient. Report given to [ AKANKSHA Ricketts @ [phone]]. Appropriate documentation sent with patient.
[2022-02-26 16:29] LABS: Glucose Point of Care 206 mg/dl (65-105)
[2022-02-26] MEDS: traMADol HCL (*CRX) 50 MG TABLET PO (17:08)
[2022-02-26] MEDS: VERAPAMIL HCL 180 MG TABLET ER PO (20:00)
[2022-02-26] MEDS: ATORVASTATIN 10 MG TABLET PO (20:01)
[2022-02-26 20:38] LABS: Glucose Point of Care 171 mg/dl (65-105)
[2022-02-26] MEDS: FERROUS SULFATE 324 MG TABLET PO (21:08)
[2022-02-27] VITALS (21 sets, daily range): BP systolic 109–126; BP diastolic 58–80; PULSE 67–92; RESP 16–25; TEMP 35.9–36.1; O2SAT 97–100
[2022-02-27] MEDS: IPRATROPIUM BR 0.02% INH SOLN 0.5 MG/2.5 ML VIAL INHALATION ×5 (03:30→20:12)
[2022-02-27] MEDS: ALBUTEROL SULFATE NEB 2.5 MG/0.5 ML INH INHALATION ×5 (03:30→20:12)
[2022-02-27 08:12] LABS: Glucose Point of Care 133 mg/dl (65-105)
--- NOTE | 2022-02-27 08:35 | PM.IMPN ---
Progress Note: A&P Assessment and Plan (1) Acute on chronic respiratory failure: Qualifiers: Respiratory failure complication: hypoxia Qualified Code(s): J96.21 - Acute and chronic respiratory failure with hypoxia Code(s): J96.20 - Acute and chronic respiratory failure, unspecified whether with hypoxia or hypercapnia Status: Acute Assessment and Plan: Multifactorial most likely related to community-acquired pneumonia COPD exacerbation CHF exacerbation pulmonary hypertension IV diuresis nebulizer treatment IV steroid IV antibiotics (2) Community acquired pneumonia: Qualifiers: Laterality: right Lung location: lower lobe of lung Qualified Code(s): J18.9 - Pneumonia, unspecified organism Code(s): J18.9 - Pneumonia, unspecified organism Status: Acute Assessment and Plan: IV Rocephin IV azithromycin Repeat chest x-ray today Follow-up blood culture (3) Pulmonary hypertension: Code(s): I27.20 - Pulmonary hypertension, unspecified Status: Acute Assessment and Plan: Continue home treatment (4) Acute exacerbation of CHF (congestive heart failure): Code(s): I50.9 - Heart failure, unspecified Status: Acute Assessment and Plan: IV Lasix monitor intake and output daily weight Additional Plan Currently on verapamil and anticoagulated Subjective Date/time seen: 02/27/22 08:35 Interval history: 61 years old female with past medical history of COPD presented to the hospital with shortness of breath was found to have acute hypoxemic respiratory failure secondary to COPD exacerbation CHF exacerbation and community-acquired pneumonia treated with nebulizer treatment steroid antibiotic At home patient use 4 L oxygen Patient feels weak short of breath Patient denies fever headache chest pain I am seeing the patient for shortness of breath Exam Narrative: Alert Chest bilateral wheezing crackles Abdomen nontender nondistended CVS S1 + S2 Bilateral lower extremities positive edema Objective Data Vital Signs Vital Signs: Vital Signs - 24 hr 02/26/22 11:02 02/26/22 12:00 02/26/22 12:45 Temperature 97.2 F L Pulse Rate 99 84 89 Respiratory Rate 26 H 20 Blood Pressure 152/83 H Pulse Oximetry 95 02/26/22 13:10 02/26/22 15:36 02/26/22 16:00 Temperature 96.6 F L Pulse Rate 88 92 92 Respiratory Rate 20 20 Blood Pressure 148/62 H Pulse Oximetry 95 94 02/26/22 20:00 02/26/22 20:04 02/26/22 20:14 Temperature Pulse Rate 90 78 78 Respiratory Rate 23 H 20 20 Blood Pressure Pulse Oximetry 100 02/26/22 22:00 02/26/22 23:13 02/26/22 23:45 Temperature 97.9 F Pulse Rate 78 80 78 Respiratory Rate 16 22 H 20 Blood Pressure 121/65 Pulse Oximetry 100 100 02/26/22 23:53 02/26/22 23:55 02/27/22 00:00 Temperature 96.9 F L Pulse Rate 78 78 71 Respiratory Rate 20 20 16 Blood Pressure 125/80 Pulse Oximetry 97 100 02/27/22 02:12 02/27/22 03:20 02/27/22 03:30 Temperature Pulse Rate 88 76 76 Respiratory Rate 18 18 18 Blood Pressure Pulse Oximetry 97 97 02/27/22 04:00 Temperature Pulse Rate 78 Respiratory Rate Blood Pressure Pulse Oximetry Intake/Output Intake/Output: Intake & Output 02/24/22 02/25/22 02/26/22 02/27/22 23:59 23:59 23:59 23:59 Intake Total 1934 500 Output Total 2600 1000 Balance -666 -500 Meds/Results Medications: Active Medications Generic Name Dose Route Start Last Admin Trade Name Freq PRN Reason Stop Dose Admin Albuterol 2.5 mg 02/26/22 08:00 02/27/22 08:33 Albuterol Sulfate Neb 2.5 Mg/0.5 Ml Inh INHALATION 2.5 mg Q4HRT COTY Administration Apixaban 5 mg 02/26/22 09:15 02/26/22 21:08 Apixaban 5 Mg Tablet PO 5 mg Q12HR COTY Administration Ascorbic Acid 1,000 mg 02/26/22 09:00 02/26/22 17:46 Ascorbic Acid 500 Mg Tablet PO 1,000 mg TID COTY Administration Atorvastatin Calcium 10 mg
[2022-02-27] MEDS: polyethylene glycoL 3350 17 GM POWD.PACK PO (09:19)
[2022-02-27] MEDS: GABAPENTIN 300 MG CAPSULE 600 MG PO ×4 (09:20→21:02)
[2022-02-27] MEDS: BACLOFEN 10 MG TABLET 30 MG PO ×4 (09:20→21:02)
[2022-02-27] MEDS: GABAPENTIN 400 MG CAPSULE PO ×4 (09:21→21:03)
[2022-02-27] MEDS: ASCORBIC ACID 500 MG TABLET 1000 MG PO ×3 (09:21→17:20)
[2022-02-27] MEDS: PANTOPRAZOLE 40 MG TABLET PO (09:22)
[2022-02-27] MEDS: APIXABAN 5 MG TABLET PO ×2 (09:22→21:02)
[2022-02-27] MEDS: MONTELUKAST SODIUM 10 MG TABLET PO (09:22)
[2022-02-27] MEDS: POTASSIUM CHLORIDE 20 MEQ TABLET.ER PO ×2 (09:24→21:02)
[2022-02-27] MEDS: guaiFENesin/DEXTROMETHORPHAN 10 ML UDC PO (09:28)
[2022-02-27] MEDS: cefTRIAXone 2 GM in SODIUM CHLORIDE 0.9% IV 100 ML 200 ML IVPB (09:30)
[2022-02-27] MEDS: FUROSEMIDE INJ 40 MG/4 ML VIAL IV PUSH ×2 (09:31→17:19)
[2022-02-27] MEDS: methylPREDNISolone SOD SUCC 40 MG VIAL IV PUSH ×2 (09:31→17:20)
[2022-02-27] MEDS: GENTAMICIN SULFATE 0.3% OP SOL 5 ML BTL 1 DROP EACH EYE (09:31)
[2022-02-27 09:33] LABS: Basophils Percent Auto 0.5 % (0.2-1.2); Eosinophils Percent Auto 0.5 % (0-4.4); Hemoglobin 12.9 g/dL (12.0-15.0); Immature Granulocyte Absolute 0.02 K/mm3 (0.00-0.031); Immature Granulocyte Percent A 0.2 % (0-0.5); Lymphocytes Absolute Auto 2.38 K/mm3 (0.9-3.2); Lymphocytes Percent Auto 27.5 % (18.3-44.2); Mean Corpuscular HGB Conc 30.7 g/dl (32-36); Mean Corpuscular Hemoglobin 28.6 pg (26-34); Mean Corpuscular Volume 93.1 fl (80-100); Mean Platelet Volume 8.5 fl (7.4-10.4); Monocytes Absolute Auto 0.8 K/mm3 (0.1-0.6); Monocytes Percent Auto 8.9 % (2.6-8.5); Neutrophils Absolute Auto 5.4 K/mm3 (1.3-6.7); Neutrophils Percent Auto 62.4 % (45.5-73.1); Platelet Count Result 347 k/mm3 (150-375); Red Blood Count 4.51 M/mm3 (4.2-5.4); Red Cell Distribution Width 15.1 % (11.5-14.5); White Blood Count 8.7 K/mm3 (4.5-10.0)
[2022-02-27 09:48] LABS: Alanine Aminotransferase 21 U/L (4-35); Albumin Level 4.1 g/dL (3.5-5.1); Alkaline Phosphatase 104 U/L (38-126); Anion Gap 5 mmol/L (8-16); Aspartate Amino Transferase 32 U/L (14-36); Bilirubin,Total 0.2 mg/dL (0.2-1.3); Blood Urea Nitrogen 10 mg/dL (7-17); Calcium 9.2 mg/dL (8.4-10.2); Carbon Dioxide 32 mmol/L (22-30); Chloride 94 mmol/L (98-107); Estimated CRCL calculation 124 ml/min; Estimated Glomerular Filt Rate > 60; Glucose 138 mg/dL (65-110); Potassium 3.8 mmol/L (3.4-5.0); Sodium 131 mmol/L (137-145)
[2022-02-27] MEDS: traMADol HCL (*CRX) 50 MG TABLET PO ×2 (09:48→17:41)
[2022-02-27 11:56] LABS: Glucose Point of Care 202 mg/dl (65-105)
[2022-02-27] MEDS: METOPROLOL SUCCINATE EXT REL 25 MG TABCR PO (12:40)
[2022-02-27 17:03] LABS: Glucose Point of Care 187 mg/dl (65-105)
[2022-02-27] MEDS: FLUCONAZOLE 150 MG TABLET PO (19:21)
[2022-02-27] MEDS: diphenhydrAMINE HCl CAP 25 MG CAPSULE PO (19:21)
[2022-02-27] MEDS: oxyCODONE/ACETAMINOPHEN (*CRX) 5-325 MG TABLET 1 TABLET PO (19:25)
[2022-02-27] MEDS: oxyCODONE HCL (*CRX) 5 MG TAB IR PO (19:26)
[2022-02-27] MEDS: FERROUS SULFATE 324 MG TABLET PO (21:01)
[2022-02-27] MEDS: ATORVASTATIN 10 MG TABLET PO (21:03)
[2022-02-27] MEDS: VERAPAMIL HCL 180 MG TABLET ER PO (21:04)
[2022-02-27 21:33] LABS: Glucose Point of Care 217 mg/dl (65-105)
[2022-02-28] VITALS (23 sets, daily range): BP systolic 119–130; BP diastolic 60–79; PULSE 57–94; RESP 16–21; TEMP 35.8–36.2; O2SAT 91–100
[2022-02-28] MEDS: methylPREDNISolone SOD SUCC 40 MG VIAL IV PUSH ×3 (00:11→17:23)
[2022-02-28] MEDS: ALBUTEROL SULFATE NEB 2.5 MG/0.5 ML INH INHALATION ×6 (00:14→21:22)
[2022-02-28] MEDS: IPRATROPIUM BR 0.02% INH SOLN 0.5 MG/2.5 ML VIAL INHALATION ×6 (00:14→21:22)
[2022-02-28 01:19] LABS: Glucose Point of Care 202 mg/dl (65-105)
[2022-02-28] MEDS: LORazepam (*CRX) 1 MG TABLET PO (01:22)
[2022-02-28 06:09] LABS: Basophils Percent Auto 0.1 % (0.2-1.2); Hematocrit 41.6 % (37.0-47.0); Hemoglobin 12.8 g/dL (12.0-15.0); Immature Granulocyte Absolute 0.05 K/mm3 (0.00-0.031); Immature Granulocyte Percent A 0.4 % (0-0.5); Lymphocytes Absolute Auto 1.24 K/mm3 (0.9-3.2); Lymphocytes Percent Auto 10.8 % (18.3-44.2); Mean Corpuscular HGB Conc 30.8 g/dl (32-36); Mean Corpuscular Hemoglobin 28.6 pg (26-34); Mean Corpuscular Volume 93.1 fl (80-100); Mean Platelet Volume 8.7 fl (7.4-10.4); Monocytes Absolute Auto 0.3 K/mm3 (0.1-0.6); Monocytes Percent Auto 2.5 % (2.6-8.5); Neutrophils Absolute Auto 9.9 K/mm3 (1.3-6.7); Neutrophils Percent Auto 86.2 % (45.5-73.1); Platelet Count Result 362 k/mm3 (150-375); Red Blood Count 4.47 M/mm3 (4.2-5.4); Red Cell Distribution Width 14.6 % (11.5-14.5); White Blood Count 11.5 K/mm3 (4.5-10.0)
[2022-02-28 06:19] LABS: Alanine Aminotransferase 20 U/L (4-35); Albumin Level 4.2 g/dL (3.5-5.1); Alkaline Phosphatase 100 U/L (38-126); Anion Gap 3 mmol/L (8-16); Aspartate Amino Transferase 33 U/L (14-36); Bilirubin,Total 0.2 mg/dL (0.2-1.3); Blood Urea Nitrogen 14 mg/dL (7-17); Calcium 9.6 mg/dL (8.4-10.2); Carbon Dioxide 36 mmol/L (22-30); Chloride 91 mmol/L (98-107); Estimated CRCL calculation 105 ml/min; Estimated Glomerular Filt Rate > 60; Glucose 204 mg/dL (65-110); Potassium 5.4 mmol/L (3.4-5.0); Sodium 130 mmol/L (137-145)
[2022-02-28 08:00] LABS: Glucose Point of Care 222 mg/dl (65-105)
[2022-02-28] MEDS: MONTELUKAST SODIUM 10 MG TABLET PO (08:31)
[2022-02-28] MEDS: PANTOPRAZOLE 40 MG TABLET PO (08:32)
[2022-02-28] MEDS: ASCORBIC ACID 500 MG TABLET 1000 MG PO ×3 (08:32→17:23)
[2022-02-28] MEDS: APIXABAN 5 MG TABLET PO ×2 (08:32→21:06)
[2022-02-28] MEDS: GENTAMICIN SULFATE 0.3% OP SOL 5 ML BTL 1 DROP EACH EYE (08:32)
[2022-02-28] MEDS: GABAPENTIN 400 MG CAPSULE PO ×4 (08:32→21:16)
[2022-02-28] MEDS: FUROSEMIDE INJ 40 MG/4 ML VIAL IV PUSH ×2 (08:32→17:22)
[2022-02-28] MEDS: BACLOFEN 10 MG TABLET 30 MG PO ×4 (08:33→21:05)
[2022-02-28] MEDS: GABAPENTIN 300 MG CAPSULE 600 MG PO ×4 (08:33→21:06)
[2022-02-28] MEDS: POTASSIUM CHLORIDE 20 MEQ TABLET.ER PO ×2 (08:33→21:06)
[2022-02-28] MEDS: polyethylene glycoL 3350 17 GM POWD.PACK PO (08:38)
[2022-02-28] MEDS: cefTRIAXone 2 GM in SODIUM CHLORIDE 0.9% IV 100 ML 200 ML IVPB (08:38)
--- NOTE | 2022-02-28 10:12 | PM.IMPN ---
Progress Note: A&P Assessment and Plan (1) Acute on chronic respiratory failure: Qualifiers: Respiratory failure complication: hypoxia Qualified Code(s): J96.21 - Acute and chronic respiratory failure with hypoxia Code(s): J96.20 - Acute and chronic respiratory failure, unspecified whether with hypoxia or hypercapnia Status: Acute Assessment and Plan: Multifactorial most likely related to community-acquired pneumonia COPD exacerbation CHF exacerbation pulmonary hypertension diuresis nebulizer treatment IV steroid antibiotics (2) Community acquired pneumonia: Qualifiers: Laterality: right Lung location: lower lobe of lung Qualified Code(s): J18.9 - Pneumonia, unspecified organism Code(s): J18.9 - Pneumonia, unspecified organism Status: Acute Assessment and Plan: IV azithromycin Follow-up blood culture (3) Pulmonary hypertension: Code(s): I27.20 - Pulmonary hypertension, unspecified Status: Acute Assessment and Plan: Continue home treatment (4) Acute exacerbation of CHF (congestive heart failure): Code(s): I50.9 - Heart failure, unspecified Status: Acute Assessment and Plan: Lasix monitor intake and output daily weight (5) Wound of lower extremity: Code(s): S81.809A - Unspecified open wound, unspecified lower leg, initial encounter Status: Acute Assessment and Plan: Wound care consult Additional Plan Candidal infection give Diflucan Subjective Date/time seen: 02/28/22 10:12 Interval history: 61 years old female with past medical history of COPD presented to the hospital with shortness of breath was found to have acute hypoxemic respiratory failure secondary to COPD exacerbation CHF exacerbation and community-acquired pneumonia treated with nebulizer treatment steroid antibiotic At home patient use 4 L oxygen Patient stated that she is getting severe yeast infection with antibiotic Patient started complaining of itching in the vulvar area Patient is short of breath on oxygen Patient denies fever headache chest pain I am seeing the patient for shortness of breath Exam Narrative: Alert Chest bilateral wheezing crackles Abdomen nontender nondistended CVS S1 + S2 Bilateral lower extremities positive edema Objective Data Vital Signs Vital Signs: Vital Signs - 24 hr 02/27/22 11:45 02/27/22 11:52 02/27/22 12:00 Temperature Pulse Rate 74 73 80 Respiratory Rate 18 18 Blood Pressure Pulse Oximetry 02/27/22 14:00 02/27/22 16:00 02/27/22 16:05 Temperature 96.7 F L Pulse Rate 84 77 70 Respiratory Rate 20 18 Blood Pressure 109/58 L Pulse Oximetry 99 02/27/22 16:14 02/27/22 20:00 02/27/22 20:17 Temperature Pulse Rate 77 92 78 Respiratory Rate 18 25 H Blood Pressure Pulse Oximetry 02/27/22 20:19 02/27/22 20:23 02/27/22 20:24 Temperature Pulse Rate 81 81 Respiratory Rate 22 H 22 H Blood Pressure Pulse Oximetry 99 99 02/27/22 22:17 02/28/22 00:00 02/28/22 00:15 Temperature 97 F L Pulse Rate 83 57 L 83 Respiratory Rate 20 20 Blood Pressure 126/74 Pulse Oximetry 97 02/28/22 00:28 02/28/22 03:50 02/28/22 03:51 Temperature Pulse Rate 82 59 L 61 Respiratory Rate 20 17 17 Blood Pressure Pulse Oximetry 98 02/28/22 04:00 02/28/22 06:00 02/28/22 07:48 Temperature 96.7 F L Pulse Rate 58 L 79 68 Respiratory Rate 18 20 18 Blood Pressure 126/77 Pulse Oximetry 97 02/28/22 07:51 02/28/22 07:57 Temperature Pulse Rate 72 Respiratory Rate 18 Blood Pressure Pulse Oximetry 94 Intake/Output Intake/Output: Intake & Output 02/25/22 02/26/22 02/27/22 02/28/22 23:59 23:59 23:59 23:59 Intake Total 1934 1980 850 Output Total 2600 3000 2200 [facility] [phone] Meds/Results Medications: Active Medications Generic Name Dose Route Start Last Admin Trade Name Freq PRN
[2022-02-28] MEDS: guaiFENesin 12 HR 600 MG TABCR PO ×2 (11:15→21:05)
--- NOTE | 2022-02-28 11:57 | PM.IMHP ---
H&P: HPI History of Present Illness Date/Time: 02/26/22 11:57 Chief Complaint: 61 years old female with past medical history of COPD presented to the hospital with shortness of breath started few days ago worsening gradually associated with cough multiple times a day patient also complains of lower extremity swelling worsening gradually patient has history of surgical intervention of the foot was done by vascular surgeon with no complication was found to have acute hypoxemic respiratory failure secondary to COPD exacerbation CHF exacerbation and community-acquired pneumonia treated with nebulizer treatment steroid antibiotic Review of Systems Review of Systems: All systems reviewed & are unremarkable except as noted in HPI and below PMFSH Past Medical History Medical History Closed fracture of distal end of right tibia with routine healing Diabetic peripheral neuropathy associated with type 1 diabetes mellitus Left foot pain Other closed fracture of lower end of femur Painful orthopaedic hardware Surgical History Surgical History History of foot surgery Amputations to toes of bilateral feet Family History Family History Father Malignant neoplasm of prostate Other Family history of sleep apnea Social History Social History Smoking status: Former smoker Tobacco type: cigarettes Smoking end date: 11/27/96 Alcohol intake: never Substance use: never Substance use type: does not use Gender identity (if verbalized by the patient): Female Spiritual care concerns: No Meds Home Medications and Allergies Home Medications Medication Instructions Recorded Confirmed Type apixaban 5 mg tablet 5 mg PO Q12H 10/11/19 02/26/22 History ascorbic acid (vitamin C) 1,000 mg 1 gm PO TID 10/11/19 02/26/22 History tablet atorvastatin 10 mg tablet 10 mg PO HS 10/11/19 02/26/22 History ferrous sulfate 324 mg (65 mg 324 mg PO HS 10/11/19 02/26/22 History iron) tablet,delayed release furosemide 40 mg tablet 40 mg PO TID 10/11/19 02/26/22 History gabapentin 600 mg tablet 600 mg PO QID 10/11/19 02/26/22 History gentamicin 0.3 % eye drops 1 drop EACH EYE DAILY 10/11/19 02/26/22 History montelukast 5 mg chewable tablet 10 mg PO DAILY 10/11/19 02/26/22 History polyethylene glycol 3350 17 17 gm PO DAILY 10/11/19 02/26/22 History gram/dose oral powder baclofen 10 mg PO QID 02/26/22 02/26/22 History baclofen 20 mg PO QID 02/26/22 02/26/22 History cranberry 500 mg PO 1200 02/26/22 02/26/22 History fluconazole 150 mg PO TID 02/26/22 02/26/22 History gabapentin 400 mg PO QID 02/26/22 02/26/22 History lorazepam 1 mg PO QID PRN 02/26/22 02/26/22 History metoprolol succinate 25 mg PO 1200 02/26/22 02/26/22 History omeprazole 20 mg PO DAILY 02/26/22 02/26/22 History oxycodone-acetaminophen 10 - 325 tablet PO TID PRN 02/26/22 02/26/22 History potassium chloride 20 meq PO Q12H 02/26/22 02/26/22 History sitagliptin [Januvia] 100 mg PO DAILY 02/26/22 02/26/22 History tramadol 50 mg PO QID PRN 02/26/22 02/26/22 History verapamil 180 mg PO HS 02/26/22 02/26/22 History vitamin B complex 1 tablet PO DAILY 02/26/22 02/26/22 History Allergies Allergy/AdvReac Type Severity Reaction Status Date / Time moxifloxacin Allergy Unknown Rash Verified 02/25/22 23:47 strawberry Allergy Unknown Itching Verified 02/25/22 23:47 Contrast Media Allergy Unknown Rash Uncoded 02/25/22 23:47 Vital Signs Vital Signs - 24 hr 02/27/22 12:00 02/27/22 14:00 02/27/22 16:00 Temperature 96.7 F L Pulse Rate 80 84 77 Respiratory Rate 20 Blood Pressure 109/58 L Pulse Oximetry 99 02/27/22 16:05 02/27/22 16:14 02/27/22 20:00 Temperature Pulse Rate 70 77 92 Respiratory Rate 18 18 Blood Pressure
[2022-02-28 12:00] LABS: Glucose Point of Care 326 mg/dl (65-105)
--- NOTE | 2022-02-28 12:13 | WPDCDIQUERY2 ---
CDI Query Clarification Request / Hospitalist documented: Acute exacerbation of CHF (congestive heart failure): -I50.9 - Heart failure, unspecified -Status: Acute Assessment and Plan: -Lasix monitor intake and output daily weight Chest X-Ray 02/25/22 23:06 IMPRESSION: 1. Airspace opacities in right midlung zone, which may be atelectasis, pneumonia, or pleural effusion in the minor fissure. 2. Emphysema. 3. Cardiomegaly For coding purposes, please clarify if diagnosis, Acute exacerbation of CHF (congestive heart failure) is: Systolic, Diastolic, Combined, other, or unable to determine. <Ronna Newberry - Last Filed: 02/28/22 12:21>
[2022-02-28] MEDS: METOPROLOL SUCCINATE EXT REL 25 MG TABCR PO (12:58)
[2022-02-28] MEDS: FLUCONAZOLE 100 MG TABLET PO (13:00)
[2022-02-28] MEDS: INSULIN ASPART (*BKC) 100 UNITS/ML SUB-Q ×2 (13:15→22:11)
[2022-02-28 16:00] LABS: Glucose Point of Care 193 mg/dl (65-105)
[2022-02-28] MEDS: guaiFENesin/DEXTROMETHORPHAN 10 ML UDC PO (21:04)
[2022-02-28] MEDS: VERAPAMIL HCL 180 MG TABLET ER PO (21:05)
[2022-02-28] MEDS: FERROUS SULFATE 324 MG TABLET PO (21:06)
[2022-02-28] MEDS: ATORVASTATIN 10 MG TABLET PO (21:15)
[2022-02-28] MEDS: oxyCODONE/ACETAMINOPHEN (*CRX) 5-325 MG TABLET 1 TABLET PO (21:17)
[2022-02-28] MEDS: diphenhydrAMINE HCl CAP 25 MG CAPSULE PO (21:21)
[2022-02-28 21:31] LABS: Glucose Point of Care 298 mg/dl (65-105)
[2022-02-28] MEDS: BISACODYL 10 MG SUPPOSITORY RECTAL (22:11)
[2022-03-01] VITALS (23 sets, daily range): BP systolic 119–159; BP diastolic 72–89; PULSE 59–96; RESP 16–20; TEMP 34.9–35.9; O2SAT 94–100
[2022-03-01] MEDS: ALBUTEROL SULFATE NEB 2.5 MG/0.5 ML INH INHALATION ×6 (00:13→19:29)
[2022-03-01] MEDS: IPRATROPIUM BR 0.02% INH SOLN 0.5 MG/2.5 ML VIAL INHALATION ×6 (00:13→19:29)
[2022-03-01] MEDS: methylPREDNISolone SOD SUCC 40 MG VIAL IV PUSH ×3 (01:27→16:54)
[2022-03-01 06:21] LABS: Basophils Percent Auto 0.1 % (0.2-1.2); Hematocrit 41.1 % (37.0-47.0); Hemoglobin 12.8 g/dL (12.0-15.0); Immature Granulocyte Absolute 0.07 K/mm3 (0.00-0.031); Immature Granulocyte Percent A 0.6 % (0-0.5); Lymphocytes Absolute Auto 1.12 K/mm3 (0.9-3.2); Lymphocytes Percent Auto 9.3 % (18.3-44.2); Mean Corpuscular HGB Conc 31.1 g/dl (32-36); Mean Corpuscular Hemoglobin 28.5 pg (26-34); Mean Corpuscular Volume 91.5 fl (80-100); Mean Platelet Volume 8.6 fl (7.4-10.4); Monocytes Absolute Auto 0.3 K/mm3 (0.1-0.6); Monocytes Percent Auto 2.8 % (2.6-8.5); Neutrophils Absolute Auto 10.5 K/mm3 (1.3-6.7); Neutrophils Percent Auto 87.2 % (45.5-73.1); Platelet Count Result 366 k/mm3 (150-375); Red Blood Count 4.49 M/mm3 (4.2-5.4); Red Cell Distribution Width 14.5 % (11.5-14.5)
[2022-03-01 06:29] LABS: Alanine Aminotransferase 26 U/L (4-35); Albumin Level 4.1 g/dL (3.5-5.1); Alkaline Phosphatase 97 U/L (38-126); Anion Gap 7 mmol/L (8-16); Aspartate Amino Transferase 34 U/L (14-36); Bilirubin,Total 0.2 mg/dL (0.2-1.3); Blood Urea Nitrogen 15 mg/dL (7-17); Calcium 9.4 mg/dL (8.4-10.2); Carbon Dioxide 30 mmol/L (22-30); Chloride 91 mmol/L (98-107); Estimated CRCL calculation 127 ml/min; Estimated Glomerular Filt Rate > 60; Glucose 230 mg/dL (65-110); Potassium 4.8 mmol/L (3.4-5.0); Sodium 128 mmol/L (137-145)
[2022-03-01 07:54] LABS: Glucose Point of Care 229 mg/dl (65-105)
[2022-03-01] MEDS: INSULIN ASPART (*BKC) 100 UNITS/ML SUB-Q ×3 (09:04→21:30)
[2022-03-01] MEDS: MONTELUKAST SODIUM 10 MG TABLET PO (09:05)
[2022-03-01] MEDS: FLUCONAZOLE 100 MG TABLET PO (09:05)
[2022-03-01] MEDS: APIXABAN 5 MG TABLET PO ×2 (09:06→20:33)
[2022-03-01] MEDS: GABAPENTIN 400 MG CAPSULE PO ×4 (09:06→20:32)
[2022-03-01] MEDS: POTASSIUM CHLORIDE 20 MEQ TABLET.ER PO ×2 (09:07→20:32)
[2022-03-01] MEDS: BACLOFEN 10 MG TABLET 30 MG PO ×4 (09:08→20:32)
[2022-03-01] MEDS: ASCORBIC ACID 500 MG TABLET 1000 MG PO ×3 (09:08→16:53)
[2022-03-01] MEDS: PANTOPRAZOLE 40 MG TABLET PO (09:08)
[2022-03-01] MEDS: guaiFENesin 12 HR 600 MG TABCR PO ×2 (09:09→20:32)
[2022-03-01] MEDS: FUROSEMIDE INJ 40 MG/4 ML VIAL IV PUSH ×2 (09:09→16:53)
[2022-03-01] MEDS: GENTAMICIN SULFATE 0.3% OP SOL 5 ML BTL 1 DROP EACH EYE (09:09)
[2022-03-01] MEDS: GABAPENTIN 300 MG CAPSULE 600 MG PO ×4 (09:10→20:32)
[2022-03-01] MEDS: cefTRIAXone 2 GM in SODIUM CHLORIDE 0.9% IV 100 ML 200 ML IVPB (09:10)
--- NOTE | 2022-03-01 09:18 | PM.IMPN ---
Progress Note: A&P Assessment and Plan (1) Acute on chronic respiratory failure: Qualifiers: Respiratory failure complication: hypoxia Qualified Code(s): J96.21 - Acute and chronic respiratory failure with hypoxia Code(s): J96.20 - Acute and chronic respiratory failure, unspecified whether with hypoxia or hypercapnia Status: Acute Assessment and Plan: Multifactorial most likely related to community-acquired pneumonia COPD exacerbation CHF exacerbation pulmonary hypertension diuresis nebulizer treatment IV steroid antibiotics (2) Community acquired pneumonia: Qualifiers: Laterality: right Lung location: lower lobe of lung Qualified Code(s): J18.9 - Pneumonia, unspecified organism Code(s): J18.9 - Pneumonia, unspecified organism Status: Acute Assessment and Plan: Continue IV antibiotics Follow-up blood culture (3) Pulmonary hypertension: Code(s): I27.20 - Pulmonary hypertension, unspecified Status: Acute Assessment and Plan: Continue home treatment (4) Acute exacerbation of CHF (congestive heart failure): Code(s): I50.9 - Heart failure, unspecified Status: Acute Assessment and Plan: IV diuresis (5) Wound of lower extremity: Code(s): S81.809A - Unspecified open wound, unspecified lower leg, initial encounter Status: Acute Assessment and Plan: Wound care consult (6) Acute hyponatremia: Code(s): E87.1 - Hypo-osmolality and hyponatremia Status: Acute Assessment and Plan: Fluid restriction 1800 mL per day continue IV diuresis Additional Plan Candidal vaginitis Diflucan Subjective Date/time seen: 03/01/22 09:18 Interval history: 61 years old female with past medical history of COPD presented to the hospital with shortness of breath was found to have acute hypoxemic respiratory failure secondary to COPD exacerbation CHF exacerbation and community-acquired pneumonia treated with nebulizer treatment steroid antibiotic At home patient use 4 L oxygen Patient stated that she is getting severe yeast infection with antibiotic Patient started complaining of itching in the vulvar area improved Hyponatremia worse Shortness of breath improved has productive cough Patient denies fever headache chest pain I am seeing the patient for shortness of breath Exam Narrative: Alert Chest bilateral wheezing crackles Abdomen nontender nondistended CVS S1 + S2 Bilateral lower extremities positive edema Objective Data Vital Signs Vital Signs: Vital Signs - 24 hr 02/28/22 11:56 02/28/22 12:00 02/28/22 12:11 Temperature Pulse Rate 69 72 70 Respiratory Rate 18 18 Blood Pressure Pulse Oximetry 02/28/22 12:58 02/28/22 15:11 02/28/22 16:00 Temperature 97.1 F L Pulse Rate 80 75 84 Respiratory Rate 21 H Blood Pressure 119/79 Pulse Oximetry 91 02/28/22 16:13 02/28/22 20:00 02/28/22 21:22 Temperature Pulse Rate 75 94 71 Respiratory Rate 18 18 Blood Pressure Pulse Oximetry 96 96 02/28/22 21:30 02/28/22 22:00 02/28/22 23:55 Temperature 96.5 F L Pulse Rate 68 79 64 Respiratory Rate 18 16 17 Blood Pressure 130/60 Pulse Oximetry 100 96 03/01/22 00:00 03/01/22 00:13 03/01/22 00:20 Temperature Pulse Rate 66 64 66 Respiratory Rate 17 18 Blood Pressure Pulse Oximetry 03/01/22 04:00 03/01/22 04:34 03/01/22 04:44 Temperature Pulse Rate 59 L 67 68 Respiratory Rate 18 19 Blood Pressure Pulse Oximetry 94 03/01/22 06:02 03/01/22 08:16 03/01/22 08:18 Temperature 96.3 F L Pulse Rate 70 66 Respiratory Rate 20 18 Blood Pressure 119/72 Pulse Oximetry 97 97 03/01/22 08:24 Temperature Pulse Rate 68 Respiratory Rate 18 Blood Pressure Pulse Oximetry Intake/Output Intake/Output: Intake & Output 02/26/22 02/27/22 02/28/22 03/01/22 23:59 23:59 23:59 23:59 Intake Total 1933 1979 0639 [id number]
[2022-03-01] MEDS: NEOMYCIN/POLYMYXIN/BACITRACIN OINTMENT 15 GM TUBE 1 APPLIC TOPICAL (10:00)
[2022-03-01] MEDS: oxyCODONE/ACETAMINOPHEN (*CRX) 5-325 MG TABLET 1 TABLET PO (10:02)
[2022-03-01] MEDS: oxyCODONE HCL (*CRX) 5 MG TAB IR PO (10:03)
--- NOTE | 2022-03-01 10:03 | PCPTNOTE ---
Attempted physical therapy evaluation, patient being seen by wound care at 9:50. RN request therapy return at a later time. Will continue to follow.
[2022-03-01] MEDS: WATER FOR IRRIGATION, STERILE 1,000 ML BOTTLE 1000 ML (10:38)
[2022-03-01] MEDS: polyethylene glycoL 3350 17 GM POWD.PACK PO (10:50)
--- NOTE | 2022-03-01 10:57 | PCOTNOTE ---
Attempted to see patient for OT evaluation. Per nursing, try later as she is being cleaned up at the moment and will benefit from a rest. Will continue to attempt.
[2022-03-01 11:36] LABS: Glucose Point of Care 319 mg/dl (65-105)
--- NOTE | 2022-03-01 11:48 | PCOTNOTE ---
Orders received for therapy evaluations. Met with patient and discussed her prior level of functioning. She reports that she has trades helper 5 hrs/day that dress her and transfer her into her motorized w/c. She states that they take care of meal prep and cleaning also. Due to being unable to bear weight through the left foot, she reports that she also has a sawyer lift at home that she was using since her foot surgery in September 2021. Contacted ordering physician who is in agreement with discharge from skilled therapy services. D/C from therapy.
--- NOTE | 2022-03-01 11:54 | PCPTNOTE ---
Orders received for therapy evaluations. Met with patient and discussed her prior level of functioning. 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 She states that they take care of meal prep and cleaning also. Due to being unable to bear weight through the left foot, she reports that she also has a sawyer lift at home that she was using since her foot surgery in September 2021. Contacted ordering physician who is in agreement with discharge from skilled therapy services. D/C from therapy.
[2022-03-01] MEDS: METOPROLOL SUCCINATE EXT REL 25 MG TABCR PO (12:27)
[2022-03-01 16:30] LABS: Glucose Point of Care 187 mg/dl (65-105)
[2022-03-01] MEDS: traMADol HCL (*CRX) 50 MG TABLET PO (20:31)
[2022-03-01] MEDS: diphenhydrAMINE HCl CAP 25 MG CAPSULE PO (20:31)
[2022-03-01] MEDS: VERAPAMIL HCL 180 MG TABLET ER PO (20:33)
[2022-03-01] MEDS: guaiFENesin/DEXTROMETHORPHAN 10 ML UDC PO (20:33)
[2022-03-01] MEDS: FERROUS SULFATE 324 MG TABLET PO (20:33)
[2022-03-01] MEDS: ATORVASTATIN 10 MG TABLET PO (20:33)
[2022-03-01 21:05] LABS: Glucose Point of Care 293 mg/dl (65-105)
[2022-03-01] MEDS: PROMETHAZINE/CODEINE (*CRX) 5 ML SYRUP BY MOUTH (22:28)
[2022-03-02] VITALS (24 sets, daily range): BP systolic 130–138; BP diastolic 69–84; PULSE 61–83; RESP 16–18; TEMP 35.9–36.1; O2SAT 95–100
[2022-03-02] MEDS: ALBUTEROL SULFATE NEB 2.5 MG/0.5 ML INH INHALATION ×6 (01:00→19:54)
[2022-03-02] MEDS: IPRATROPIUM BR 0.02% INH SOLN 0.5 MG/2.5 ML VIAL INHALATION ×6 (01:00→19:54)
[2022-03-02] MEDS: methylPREDNISolone SOD SUCC 40 MG VIAL IV PUSH ×2 (01:43→09:10)
[2022-03-02 07:08] LABS: Basophils Percent Auto 0.1 % (0.2-1.2); Hematocrit 43.2 % (37.0-47.0); Hemoglobin 13.2 g/dL (12.0-15.0); Immature Granulocyte Absolute 0.05 K/mm3 (0.00-0.031); Immature Granulocyte Percent A 0.5 % (0-0.5); Lymphocytes Absolute Auto 0.93 K/mm3 (0.9-3.2); Lymphocytes Percent Auto 8.5 % (18.3-44.2); Mean Corpuscular HGB Conc 30.6 g/dl (32-36); Mean Corpuscular Hemoglobin 28.3 pg (26-34); Mean Corpuscular Volume 92.5 fl (80-100); Mean Platelet Volume 8.6 fl (7.4-10.4); Monocytes Absolute Auto 0.4 K/mm3 (0.1-0.6); Monocytes Percent Auto 3.7 % (2.6-8.5); Neutrophils Absolute Auto 9.6 K/mm3 (1.3-6.7); Neutrophils Percent Auto 87.2 % (45.5-73.1); Platelet Count Result 390 k/mm3 (150-375); Red Blood Count 4.67 M/mm3 (4.2-5.4); Red Cell Distribution Width 14.7 % (11.5-14.5)
[2022-03-02 07:19] LABS: Alanine Aminotransferase 35 U/L (4-35); Albumin Level 4.1 g/dL (3.5-5.1); Alkaline Phosphatase 93 U/L (38-126); Anion Gap 4 mmol/L (8-16); Aspartate Amino Transferase 43 U/L (14-36); Bilirubin,Total 0.4 mg/dL (0.2-1.3); Blood Urea Nitrogen 17 mg/dL (7-17); Calcium 9.1 mg/dL (8.4-10.2); Carbon Dioxide 36 mmol/L (22-30); Chloride 89 mmol/L (98-107); Estimated CRCL calculation 125 ml/min; Estimated Glomerular Filt Rate > 60; Glucose 270 mg/dL (65-110); Potassium 4.7 mmol/L (3.4-5.0); Sodium 129 mmol/L (137-145)
[2022-03-02 08:25] LABS: Glucose Point of Care 255 mg/dl (65-105)
[2022-03-02] MEDS: ASCORBIC ACID 500 MG TABLET 1000 MG PO ×3 (09:08→17:08)
[2022-03-02] MEDS: APIXABAN 5 MG TABLET PO ×2 (09:08→20:37)
[2022-03-02] MEDS: FLUCONAZOLE 100 MG TABLET PO (09:09)
[2022-03-02] MEDS: BACLOFEN 10 MG TABLET 30 MG PO ×4 (09:09→20:37)
[2022-03-02] MEDS: GABAPENTIN 400 MG CAPSULE PO ×4 (09:09→20:36)
[2022-03-02] MEDS: FUROSEMIDE INJ 40 MG/4 ML VIAL IV PUSH (09:09)
[2022-03-02] MEDS: GABAPENTIN 300 MG CAPSULE 600 MG PO ×4 (09:09→20:37)
[2022-03-02] MEDS: guaiFENesin 12 HR 600 MG TABCR PO ×2 (09:10→20:37)
[2022-03-02] MEDS: PANTOPRAZOLE 40 MG TABLET PO (09:10)
[2022-03-02] MEDS: MONTELUKAST SODIUM 10 MG TABLET PO (09:10)
[2022-03-02] MEDS: POTASSIUM CHLORIDE 20 MEQ TABLET.ER PO ×2 (09:10→20:37)
[2022-03-02] MEDS: GENTAMICIN SULFATE 0.3% OP SOL 5 ML BTL 1 DROP EACH EYE (09:10)
[2022-03-02] MEDS: INSULIN ASPART (*BKC) 100 UNITS/ML SUB-Q ×3 (09:23→17:09)
[2022-03-02] MEDS: NEOMYCIN/POLYMYXIN/BACITRACIN OINTMENT 15 GM TUBE 1 APPLIC TOPICAL (09:34)
--- NOTE | 2022-03-02 10:15 | PM.IMPN ---
Progress Note: A&P Assessment and Plan (1) Acute on chronic respiratory failure: Qualifiers: Respiratory failure complication: hypoxia Qualified Code(s): J96.21 - Acute and chronic respiratory failure with hypoxia Code(s): J96.20 - Acute and chronic respiratory failure, unspecified whether with hypoxia or hypercapnia Status: Acute Assessment and Plan: Multifactorial most likely related to community-acquired pneumonia COPD exacerbation CHF exacerbation pulmonary hypertension diuresis nebulizer treatment IV steroid antibiotics DCed IV cefepime Continue IV Rocephin IV azithromycin day 3 patient will require total of 7 days of antibiotic Expect switch from IV to oral antibiotics in the next 24-48 hours (2) Community acquired pneumonia: Qualifiers: Laterality: right Lung location: lower lobe of lung Qualified Code(s): J18.9 - Pneumonia, unspecified organism Code(s): J18.9 - Pneumonia, unspecified organism Status: Acute Assessment and Plan: Continue IV antibiotics Follow-up blood culture (3) Pulmonary hypertension: Code(s): I27.20 - Pulmonary hypertension, unspecified Status: Acute Assessment and Plan: Continue home treatment (4) Acute exacerbation of CHF (congestive heart failure): Code(s): I50.9 - Heart failure, unspecified Status: Acute Assessment and Plan: IV diuresis improved (5) Wound of lower extremity: Code(s): S81.809A - Unspecified open wound, unspecified lower leg, initial encounter Status: Acute Assessment and Plan: Wound care consult (6) Acute hyponatremia: Code(s): E87.1 - Hypo-osmolality and hyponatremia Status: Acute Assessment and Plan: Fluid restriction 1800 mL per day continue IV diuresis improved Additional Plan Candidal vaginitis Diflucan Subjective Date/time seen: 03/02/22 10:15 Interval history: 61 years old female with past medical history of COPD presented to the hospital with shortness of breath was found to have acute hypoxemic respiratory failure secondary to COPD exacerbation CHF exacerbation and community-acquired pneumonia treated with nebulizer treatment steroid antibiotic On chronic oxygen therapy 4 L and trilogy Patient stated that she is gets severe yeast infection with antibiotic Patient started complaining of itching in the vulvar area improved Hyponatremia improved Shortness of breath improved has productive cough Hyponatremia improved shortness of breath has improved Continue Rocephin azithromycin Re-evaluate in a.m. Anticipate discharge on John with home health Patient denies fever headache chest pain I am seeing the patient for shortness of breath Exam Narrative: Alert Chest bilateral wheezing crackles Abdomen nontender nondistended CVS S1 + S2 Bilateral lower extremities positive edema Objective Data Vital Signs Vital Signs: Vital Signs - 24 hr 03/01/22 12:00 03/01/22 12:27 03/01/22 13:12 Temperature Pulse Rate 91 96 68 Respiratory Rate 18 Blood Pressure Pulse Oximetry 03/01/22 13:20 03/01/22 14:39 03/01/22 16:00 Temperature 96.7 F L 96.7 F L Pulse Rate 62 81 78 Respiratory Rate 18 18 18 Blood Pressure 142/80 H 142/80 H Pulse Oximetry 95 95 03/01/22 16:30 03/01/22 19:29 03/01/22 19:40 Temperature Pulse Rate 60 66 62 Respiratory Rate 18 18 18 Blood Pressure Pulse Oximetry 03/01/22 20:00 03/01/22 20:09 03/01/22 21:56 Temperature 94.8 F L Pulse Rate 76 68 Respiratory Rate 16 Blood Pressure 159/89 H Pulse Oximetry 96 96 100 03/02/22 00:00 03/02/22 00:50 03/02/22 01:00 Temperature Pulse Rate 78 66 66 Respiratory Rate 17 18 Blood Pressure Pulse Oximetry 95 03/02/22 01:07 03/02/22 04:00 03/02/22 04:34 Temperature Pulse Rate 66 64 65 Respiratory Rate 18 18 Blood Pressure Pulse Oximetry 95 03/02/22 04:37 03/02/22 04:44 0
[2022-03-02] MEDS: cefTRIAXone 2 GM in SODIUM CHLORIDE 0.9% IV 100 ML 200 ML IVPB (10:26)
--- NOTE | 2022-03-02 11:33 | P.CDI_ITS ---
CDI Query Clarification Request Please specify type and acuity of heart failure if known. Risk Factors: documented: Acute exacerbation of CHF (congestive heart failure): I50.9 - Heart failure, unspecified Status: Acute Clinical Indicators: Chest X-Ray 02/25/22 23:06 IMPRESSION: 1. Airspace opacities in right midlung zone, which may be atelectasis, pneumonia, or pleural effusion in the minor fissure. 2. Emphysema. 3. Cardiomegaly Treatment: -IV Lasix monitor intake and output daily weight * Acute * Chronic * Acute on Chronic * Unknown * Systolic * Diastolic * Combined Systolic and Diastolic * Unknown <Ronna Newberry - Last Filed: 03/02/22 11:49> Acute on top of chronic diastolic CHF exacerbation <Selwyn Núñez MD - Last Filed: 03/02/22 11:58>
[2022-03-02 11:54] LABS: Glucose Point of Care 454 mg/dl (65-105)
[2022-03-02] MEDS: METOPROLOL SUCCINATE EXT REL 25 MG TABCR PO (12:09)
[2022-03-02] MEDS: INSULIN ASPART (*BKC) 100 UNITS/ML 9 UNITS SUB-Q (12:49)
[2022-03-02] MEDS: oxyCODONE HCL (*CRX) 5 MG TAB IR PO ×2 (12:53→20:36)
[2022-03-02] MEDS: guaiFENesin/DEXTROMETHORPHAN 10 ML UDC PO (15:10)
[2022-03-02] MEDS: diphenhydrAMINE HCl CAP 25 MG CAPSULE PO ×2 (15:10→20:36)
[2022-03-02] MEDS: traMADol HCL (*CRX) 50 MG TABLET PO ×2 (15:10→20:35)
[2022-03-02] MEDS: PROMETHAZINE/CODEINE (*CRX) 5 ML SYRUP BY MOUTH (15:17)
[2022-03-02 16:52] LABS: Glucose Point of Care 324 mg/dl (65-105)
[2022-03-02] MEDS: oxyCODONE/ACETAMINOPHEN (*CRX) 5-325 MG TABLET 1 TABLET PO (20:36)
[2022-03-02] MEDS: ATORVASTATIN 10 MG TABLET PO (20:37)
[2022-03-02] MEDS: FERROUS SULFATE 324 MG TABLET PO (20:37)
[2022-03-02] MEDS: VERAPAMIL HCL 180 MG TABLET ER PO (20:38)
[2022-03-02 21:18] LABS: Glucose Point of Care 286 mg/dl (65-105)
[2022-03-02] MEDS: INSULIN ASPART (*BKC) 100 UNITS/ML 6 UNITS SUB-Q (21:44)
[2022-03-03] VITALS (23 sets, daily range): BP systolic 90–109; BP diastolic 71–85; PULSE 66–92; RESP 16–24; TEMP 35.8–36.1; O2SAT 95–100
[2022-03-03] MEDS: IPRATROPIUM BR 0.02% INH SOLN 0.5 MG/2.5 ML VIAL INHALATION ×7 (00:45→23:14)
[2022-03-03] MEDS: ALBUTEROL SULFATE NEB 2.5 MG/0.5 ML INH INHALATION ×7 (00:45→23:13)
[2022-03-03 07:56] LABS: Glucose Point of Care 146 mg/dl (65-105)
[2022-03-03 08:12] LABS: Basophils Percent Auto 0.1 % (0.2-1.2); Eosinophils Percent Auto 0.2 % (0-4.4); Hematocrit 43.6 % (37.0-47.0); Hemoglobin 13.3 g/dL (12.0-15.0); Immature Granulocyte Absolute 0.05 K/mm3 (0.00-0.031); Immature Granulocyte Percent A 0.3 % (0-0.5); Lymphocytes Absolute Auto 2.92 K/mm3 (0.9-3.2); Lymphocytes Percent Auto 19.8 % (18.3-44.2); Mean Corpuscular HGB Conc 30.5 g/dl (32-36); Mean Corpuscular Hemoglobin 28.4 pg (26-34); Mean Corpuscular Volume 93.2 fl (80-100); Mean Platelet Volume 8.5 fl (7.4-10.4); Monocytes Absolute Auto 1.3 K/mm3 (0.1-0.6); Monocytes Percent Auto 8.7 % (2.6-8.5); Neutrophils Absolute Auto 10.5 K/mm3 (1.3-6.7); Neutrophils Percent Auto 70.9 % (45.5-73.1); Platelet Count Result 386 k/mm3 (150-375); Red Blood Count 4.68 M/mm3 (4.2-5.4); Red Cell Distribution Width 14.8 % (11.5-14.5); White Blood Count 14.8 K/mm3 (4.5-10.0)
[2022-03-03 08:24] LABS: Alanine Aminotransferase 48 U/L (4-35); Albumin Level 4.1 g/dL (3.5-5.1); Alkaline Phosphatase 97 U/L (38-126); Anion Gap 6 mmol/L (8-16); Aspartate Amino Transferase 41 U/L (14-36); Bilirubin,Total 0.3 mg/dL (0.2-1.3); Blood Urea Nitrogen 18 mg/dL (7-17); Calcium 9.4 mg/dL (8.4-10.2); Carbon Dioxide 35 mmol/L (22-30); Chloride 92 mmol/L (98-107); Estimated CRCL calculation 106 ml/min; Estimated Glomerular Filt Rate > 60; Glucose 154 mg/dL (65-110); Potassium 4.2 mmol/L (3.4-5.0); Sodium 133 mmol/L (137-145)
[2022-03-03] MEDS: PROMETHAZINE/CODEINE (*CRX) 5 ML SYRUP BY MOUTH ×2 (09:01→23:31)
[2022-03-03] MEDS: AZITHROMYCIN 250 MG TABLET 500 MG PO (09:01)
[2022-03-03] MEDS: traMADol HCL (*CRX) 50 MG TABLET PO ×2 (09:01→20:59)
[2022-03-03] MEDS: GENTAMICIN SULFATE 0.3% OP SOL 5 ML BTL 1 DROP EACH EYE (09:02)
[2022-03-03] MEDS: CEFDINIR 300 MG CAPSULE PO (09:02)
[2022-03-03] MEDS: BACLOFEN 10 MG TABLET 30 MG PO ×4 (09:02→20:35)
[2022-03-03] MEDS: GABAPENTIN 400 MG CAPSULE PO ×4 (09:02→20:39)
[2022-03-03] MEDS: GABAPENTIN 300 MG CAPSULE 600 MG PO ×4 (09:02→20:39)
[2022-03-03] MEDS: guaiFENesin 12 HR 600 MG TABCR PO (09:03)
[2022-03-03] MEDS: APIXABAN 5 MG TABLET PO ×2 (09:03→20:38)
[2022-03-03] MEDS: PANTOPRAZOLE 40 MG TABLET PO (09:03)
[2022-03-03] MEDS: POTASSIUM CHLORIDE 20 MEQ TABLET.ER PO ×2 (09:03→20:40)
[2022-03-03] MEDS: MONTELUKAST SODIUM 10 MG TABLET PO (09:03)
[2022-03-03] MEDS: ASCORBIC ACID 500 MG TABLET 1000 MG PO ×3 (09:03→17:24)
[2022-03-03] MEDS: NEOMYCIN/POLYMYXIN/BACITRACIN OINTMENT 15 GM TUBE 1 APPLIC TOPICAL (09:05)
[2022-03-03] MEDS: guaiFENesin/DEXTROMETHORPHAN 10 ML UDC PO ×3 (09:16→20:59)
[2022-03-03 11:44] LABS: Glucose Point of Care 141 mg/dl (65-105)
--- NOTE | 2022-03-03 11:47 | PM.IMPN ---
Progress Note: A&P Assessment and Plan (1) Acute on chronic respiratory failure: Qualifiers: Respiratory failure complication: hypoxia Qualified Code(s): J96.21 - Acute and chronic respiratory failure with hypoxia Code(s): J96.20 - Acute and chronic respiratory failure, unspecified whether with hypoxia or hypercapnia Status: Acute Assessment and Plan: Multifactorial most likely related to community-acquired pneumonia COPD exacerbation CHF exacerbation pulmonary hypertension diuresis nebulizer treatment IV steroid antibiotics DCed IV cefepime Continue IV Rocephin IV azithromycin day 4 patient will require total of 7 days of antibiotic Still short of breath. Will continue IV antibiotics on steroid IV BiPAP p.r.n. (2) Community acquired pneumonia: Qualifiers: Laterality: right Lung location: lower lobe of lung Qualified Code(s): J18.9 - Pneumonia, unspecified organism Code(s): J18.9 - Pneumonia, unspecified organism Status: Acute Assessment and Plan: Continue IV antibiotics Follow-up blood culture (3) Pulmonary hypertension: Code(s): I27.20 - Pulmonary hypertension, unspecified Status: Acute Assessment and Plan: Continue home treatment (4) Acute exacerbation of CHF (congestive heart failure): Code(s): I50.9 - Heart failure, unspecified Status: Acute Assessment and Plan: IV diuresis improved (5) Wound of lower extremity: Code(s): S81.809A - Unspecified open wound, unspecified lower leg, initial encounter Status: Acute Assessment and Plan: Wound care consult (6) Acute hyponatremia: Code(s): E87.1 - Hypo-osmolality and hyponatremia Status: Acute Assessment and Plan: Fluid restriction 1800 mL per day continue IV diuresis improved Additional Plan Candidal vaginitis Diflucan Chronic indwelling Valenzuela catheter changed on 02 February Subjective Date/time seen: 03/03/22 11:47 Interval history: 61 years old female with past medical history of COPD presented to the hospital with shortness of breath was found to have acute hypoxemic respiratory failure secondary to COPD exacerbation CHF exacerbation and community-acquired pneumonia treated with nebulizer treatment steroid antibiotic On chronic oxygen therapy 4 L and trilogy 03/03/2022 patient continues to have cough and shortness of breath on exertion. She was feeling well yesterday with not feeling so well today. She wants to start back on her senna mom, cranberry, vitamin B complex. Dislikes her fluid restrictions as well. Review of Systems Review of Systems: All systems reviewed & are unremarkable except as noted in HPI and below Exam Narrative: Const: General: in distress patient with morbid obesity HENMT: Mouth: Yes moist mucous membranes using BiPAP intermittently during our visit Eyes: Sclera: sclerae normal Neck: Nontender, supple Resp: Coarse breath sound on of wheezing rhonchi noted Cardio: Rate: regular rate Rhythm: regular rhythm GI: Inspection: non-distended GI Palp: Yes Soft to palpation Skin: General skin exam: normal color Wounds: wounds noted Extrem: Bilateral lower extremity nonpitting edema present, no cyanosis or clubbing Psych: Mental Status: mental status grossly normal : Valenzuela in place Objective Data Vital Signs Vital Signs: Vital Signs - 24 hr 03/02/22 12:09 03/02/22 13:15 03/02/22 13:27 Temperature Pulse Rate 76 72 77 Respiratory Rate 18 18 Blood Pressure Pulse Oximetry 03/02/22 14:00 03/02/22 16:45 03/02/22 16:55 Temperature 96.6 F L Pulse Rate 70 76 75 Respiratory Rate 18 18 18 Blood Pressure 130/69 Pulse Oximetry 100 03/02/22 19:54 03/02/22 19:59 03/02/22 20:00 Temperature Pulse Rate 83 Respiratory Rate 18 Blood Pressure Pulse Oximetry 95 99 03/02/22 20:06 03/02/22 21:42 03/02/22 23:35 Temperature 96.9 F L P
[2022-03-03] MEDS: METOPROLOL SUCCINATE EXT REL 25 MG TABCR PO (12:48)
--- NOTE | 2022-03-03 13:06 | PM.CNPUL ---
Assessment and Plan Assessment and plan (1) Chronic obstructive pulmonary disease: Qualifiers: COPD type: emphysema Emphysema type: unspecified Qualified Code(s): J43.9 - Emphysema, unspecified Code(s): J44.9 - Chronic obstructive pulmonary disease, unspecified Status: Acute Assessment and Plan: patient with a history of tobacco use, quit 12 days ago, severe obstructive abnormality by PFTs on 01/07/2020, apical predominant centrilobular emphysema on her CT scan of the chest from 02/26/2022, chronic hypoxic respiratory failure on 3-4 L home O2, chronic hypercarbic respiratory failure on noninvasive ventilator with AVAPS-AE mode at home, severe pulmonary hypertension with an estimated RVSP of 107 by echocardiogram on 06/03/2019 with moderately enlarged right ventricle with RV hypokinesis, Morbid obesity. She presented on 02/26/2022 with COPD exacerbation, community-acquired pneumonia and congestive heart failure. Patient was treated with steroids, bronchodilators, antibiotics and Lasix and improved up until 03/03 when her IV steroids were discontinued. Overall today she tells me the she is improved since admission but somewhat worse than 4 6. Patient is currently wheezing and was placed on Solu-Medrol and I will change the dose to 40 mg IV q.6 hours. I will continue her ipratropium 0.5 mg nebs q.4 hours and albuterol 2.5 mg nebs q.4 hours standing at this time. Patient is expectorated in her sputum better today. I will continue guaifenesin 600 mg p.o. b.i.d. and a Cornet flutter valve. Regarding her community-acquired pneumonia. She was COVID negative and influenza negative on admission. Blood cultures from admission are negative. The patient was initially started on ceftriaxone on 02/26 and azithromycin on 02/26. I will continue those antibiotics today and check a procalcitonin and a chest x-ray in the morning. She is afebrile, her white count is increased today to 14.8. Regarding her chronic hypoxic hypercarbic respiratory failure I have adjusted her settings to mimic her home machine and to provide more comfort for her. She is currently on AVAPS rate of 16, tidal volume 400, EPAP of 6, minimal inspiratory pressure 7, maximal inspiratory pressure 25, inspiratory time 1.0 seconds, rise 3, FIO2 35%. I will check an overnight oximetry on 35% and I will check a blood gas in the morning prior to removal. The patient has a history of severe pulmonary hypertension and hypoxemic respiratory failure I would check a echocardiogram with a bubble study on 03/04/2022. I will check a BNP on 03/04/2022, her BNP was 128 on admission. Will follow with you. 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 The patient was last seen many years ago and missed appointments on 12/21/2020 and 01/19/2022. Patient was admitted to the hospital on 02/25/2022 with cough, shortness of breath, edema and wheezing. Patient was treated for COPD exacerbation with steroids antibiotics and bronchodilators. She was treated for congestive heart failure with IV Lasix and treated for community-acquired pneumonia with antibiotics. Patient improved up until 4 6 when she is getting ready to be discharged home. She then has developed worsening shortness of breath which she attributes to her IV steroids being disconti
[2022-03-03] MEDS: methylPREDNISolone SOD SUCC 40 MG VIAL IV PUSH ×3 (13:58→23:35)
--- NOTE | 2022-03-03 16:13 | ECG_ITS ---
Measurements Intervals Parker Rate: 113 P: 70 OK: 116 QRS: 80 QRSD: 96 T: 83 QT: 315 QTc: 432 Interpretive Statements SINUS TACHYCARDIA WITH SHORT OK INTERVAL INCOMPLETE RIGHT BUNDLE BRANCH BLOCK [90+ ms QRS DURATION, TERMINAL R IN V1/V2, 40+ ms S IN I/aVL/V4/V5/V6] COMPARED TO ECG 02/26/2022 00:32:28 SINUS TACHYCARDIA NOW PRESENT Electronically Signed On 03-03-2022 19:01:55 CDT by Courtney Hendricks M.D.
[2022-03-03 16:39] LABS: Glucose Point of Care 310 mg/dl (65-105)
[2022-03-03] MEDS: INSULIN ASPART (*BKC) 100 UNITS/ML SUB-Q (17:26)
[2022-03-03] MEDS: ATORVASTATIN 10 MG TABLET PO (20:38)
[2022-03-03] MEDS: FERROUS SULFATE 324 MG TABLET PO (20:39)
[2022-03-03] MEDS: guaiFENesin 12 HR 600 MG TABCR 1200 MG PO (20:40)
[2022-03-03] MEDS: VERAPAMIL HCL 180 MG TABLET ER PO (20:40)
[2022-03-03] MEDS: INSULIN ASPART (*BKC) 100 UNITS/ML 10 UNITS SUB-Q (22:05)
[2022-03-04] VITALS (18 sets, daily range): BP systolic 125–173; BP diastolic 77–98; PULSE 72–92; RESP 16–20; TEMP 36.1–36.2; O2SAT 93–100
[2022-03-04 01:35] LABS: Glucose Point of Care 314 mg/dl (65-105)
[2022-03-04 01:35] LABS: Glucose Point of Care 336 mg/dl (65-105)
[2022-03-04 05:00] LABS: Alveolar/Arterial O2 Gradient 113.4 mmHg; Base Excess ABG 5.7 mEq/l (+/-2.0); Device NON-INVASIVE VENT; Fractional Inspired Oxygen 35 %; HCO3 ABG 32.9 mEq/l (22.0-26.0); Modified Allen's Test Pass; Oxygen Content ABG 18.2 %vol (16.0-22.0); Oxygen Saturation ABG 92.4 % (95.0-100.0); Oxyhemoglobin 91.6 % THb (90.0-100.0); PCO2 ABG 59.1 mmHg (35.0-45.0); PO2 ABG 67.4 mmHg (80.0-100.0); PO2 FiO2 Ratio Arterial Blood 1.93 %; Site Drawn RIGHT RADIAL; Total Hemoglobin 14.1 g/dL (12.0-18.0); pH ABG 7.364 (7.350-7.450)
[2022-03-04 05:01] LABS: Non-Invasive Vent Rate 16 /MIN
[2022-03-04 05:03] LABS: Non-Invasive Expiratory Pressure 6 CMH2O
[2022-03-04] MEDS: methylPREDNISolone SOD SUCC 40 MG VIAL IV PUSH (05:56)
[2022-03-04 05:57] LABS: Basophils Percent Auto 0.1 % (0.2-1.2); Hematocrit 41.7 % (37.0-47.0); Immature Granulocyte Absolute 0.07 K/mm3 (0.00-0.031); Immature Granulocyte Percent A 0.5 % (0-0.5); Lymphocytes Absolute Auto 1.27 K/mm3 (0.9-3.2); Lymphocytes Percent Auto 9.6 % (18.3-44.2); Mean Corpuscular HGB Conc 31.2 g/dl (32-36); Mean Corpuscular Hemoglobin 28.2 pg (26-34); Mean Corpuscular Volume 90.5 fl (80-100); Mean Platelet Volume 8.3 fl (7.4-10.4); Monocytes Absolute Auto 0.3 K/mm3 (0.1-0.6); Monocytes Percent Auto 2.3 % (2.6-8.5); Neutrophils Absolute Auto 11.6 K/mm3 (1.3-6.7); Neutrophils Percent Auto 87.5 % (45.5-73.1); Platelet Count Result 374 k/mm3 (150-375); Red Blood Count 4.61 M/mm3 (4.2-5.4); Red Cell Distribution Width 14.5 % (11.5-14.5); White Blood Count 13.2 K/mm3 (4.5-10.0)
[2022-03-04 06:10] LABS: Alanine Aminotransferase 42 U/L (4-35); Alkaline Phosphatase 86 U/L (38-126); Anion Gap 3 mmol/L (8-16); Aspartate Amino Transferase 30 U/L (14-36); Bilirubin,Total 0.3 mg/dL (0.2-1.3); Blood Urea Nitrogen 16 mg/dL (7-17); Calcium 9.4 mg/dL (8.4-10.2); Carbon Dioxide 36 mmol/L (22-30); Chloride 92 mmol/L (98-107); Estimated CRCL calculation 125 ml/min; Estimated Glomerular Filt Rate > 60; Glucose 261 mg/dL (65-110); Magnesium 2.3 mg/dL (1.6-2.3); Potassium 4.7 mmol/L (3.4-5.0); Sodium 131 mmol/L (137-145)
[2022-03-04 06:17] LABS: NT Pro B Type Natriuretic Pept 300 pg/mL (5-100)
--- NOTE | 2022-03-04 06:49 | PM.PNPUL ---
Progress Note: A&P Assessment and Plan (1) Chronic obstructive pulmonary disease: Qualifiers: COPD type: emphysema Emphysema type: unspecified Qualified Code(s): J43.9 - Emphysema, unspecified Code(s): J44.9 - Chronic obstructive pulmonary disease, unspecified Status: Acute Assessment and Plan: 61-year-old woman with a history of COPD with a post bronchodilator FEV1 of 1.03, 46% predicted on 01/07/2020, centrilobular emphysema on CT scan from 05/27/2014, chronic hypercarbic and hypoxemic respiratory failure requiring a home trilogy noninvasive ventilator with an AVAPS-AE mode and 2 L bleed in at night, 3-4 L oxygen during the day, severe pulmonary hypertension first documented by echo in 05/27/2014 with RVSP 55, with RV hypokinesis and RVSP 107 on most recent echo from 06/03/2019. History of PE on 05/27/2014, atrial fibrillation on Eliquis 5 p.o. b.i.d. baseline she is nonambulatory from gout, peripheral neuropathy and arthritis, she is in bed most of the day and at time she can get up to her motorized wheelchair at home. The patient was scheduled in pulmonary clinic on 12/21/2020 and 01/19/2022 but was not present. 03/03 She presented on 02/26/2022 with COPD exacerbation, community-acquired pneumonia and congestive heart failure. Patient was treated with steroids, bronchodilators, antibiotics and Lasix and improved up until 03/03 when her IV steroids were discontinued. Overall today she tells me the she is improved since admission but somewhat worse than 03/02. Patient is currently wheezing and was placed on Solu-Medrol and I will change the dose to 40 mg IV q.6 hours. I will continue her ipratropium 0.5 mg nebs q.4 hours and albuterol 2.5 mg nebs q.4 hours standing at this time. Patient is expectorated in her sputum better today. I will continue guaifenesin 600 mg p.o. b.i.d. and a Cornet flutter valve. 03/04 Overall she states she is doing better today than yesterday. She is communicating easily and on 4 L nasal cannula with saturations 95%. She has no wheezing today. She does states she has trouble expectorating her phlegm and I will start Pulmozyme. Her BNP is 300 and I have increased her Lasix to 40 IV b.i.d.. I will decrease her Solu-Medrol to 20 q.6. Today is her last dose of azithromycin. She remains on ceftriaxone (day 7). Will follow with you. (2) Community acquired pneumonia: Qualifiers: Laterality: right Lung location: lower lobe of lung Qualified Code(s): J18.9 - Pneumonia, unspecified organism Code(s): J18.9 - Pneumonia, unspecified organism Status: Acute Assessment and Plan: 03/03 Regarding her community-acquired pneumonia. She was COVID negative and influenza negative on admission. Blood cultures from admission are negative. The patient was initially started on ceftriaxone on 02/26 and azithromycin on 02/26. I will continue those antibiotics today and check a procalcitonin and a chest x-ray in the morning. She is afebrile, her white count is increased today to 14.8. 03/04 patient is afebrile, white blood cell count 13.2 on high-dose steroids, she does have some thick phlegm production. procalcitonin level is 0. Chest x-ray today was stable bibasilar mild infiltrates in the right mid lung zone infiltrate has improved since 02/25/2022 and 02/27/2022. She will finish her azithromycin today (recieved 7 days). I will continue ceftriaxone today is day 7 (3) Pulmonary hypertension: Code(s): I27.20 - Pulmonary hypertension, unspecified Status: Acute Assessment and Plan: Severe pulmonary hypertension first documented by echo in 05/27/2014 with RVSP 55, with RV hypokinesis and on most recent echo from 06/03/2019 RVSP 107 with Moderate enlargement of the right ventricle with RV hypokinesis. Patient was seen by pulmonary consult team on 01/16/2019 With the etiology of her pulmonary hypertension thought to be multifactorial from COPD with chronic hypoxemic and hy
[2022-03-04 07:10] LABS: Free T4 Free Thyroxine 0.95 ng/mL (0.78-2.19)
[2022-03-04 07:23] LABS: Thyroid Stimulating Hormone 0.606 uIU/mL (0.465-4.680)
--- NOTE | 2022-03-04 08:00 | ECHO_ITS ---
Patient Info Name: Ke Garnica Age: 61 years : 1960 Gender: Female Ht: 63 in Wt: 259 lbs BSA: 2.35 m2 HR: 84 bpm BP: 107 / 82 mmHg Heart Rhythm: Sinus Rhythm Technical Quality: Poor Exam Date: 03/04/2022 9:00 AM Exam Location: [facility] Pulmonary Patient Status: Inpatient Admit Date: 02/27/2022 Staff Ordering Physician: Lonnie West MD Surface Water Technician: Oneyda Medeiros RDCS Attending Provider: Ba Lucas MD Referring Physician: Brett FARMER; Exam Type: CA echo dop bubble study w con Study Info Indications - hypoxia, assess for pfo Complete two-dimensional, color flow and Doppler transthoracic echocardiogram is performed with contrast to opacify the left ventricle and to improve the deliniation of the left ventricle endocardial borders. Complete two-dimensional, color flow and Doppler transthoracic echocardiogram is performed with agitated saline. Contrast/Agitated Saline Contrast/Ag. Saline: Agitated Saline Amount: 20.00 ml Existing IV Access: Yes IV Access Condition: patent with no signs of infiltration Contrast/Ag. Saline: Definity Amount: 2.00 ml Administered By: Oneyda Medeiros RDCS Existing IV Access: Yes Summary 1. Technically suboptimal study due to poor sonographic images. 2. Definity contrast administered improved wall motion interpretation. 3. Left ventricular chamber dimension is normal. 4. Left ventricular systolic function is hyperdynamic, estimated at >70%. 5. There is mildly increased left ventricular wall thickness. 6. The left ventricular diastolic function is grade I diastolic dysfunction. 7. E/e' 22 is elevated. 8. Right ventricular systolic function is reduced based on abnormal TAPSE 1.6 cm. 9. There is mild to moderate aortic valve stenosis based on a peak velocity of 230 cm/s, mean gradient of 9 mmHg, and aortic valve area of 1.4 cm2. 10. There is moderate aortic valve sclerosis. 11. The mitral valve has severely calcified annulus. 12. There is mild tricuspid valve regurgitation. 13. Mild pulmonary hypertension, estimated pulmonary arterial systolic pressure is 46 mmHg. Left Ventricle Definity contrast administered improved wall motion interpretation. Technically suboptimal study due to poor sonographic images. E/e' 22 is elevated. Left ventricular chamber dimension is normal. Left ventricular systolic function is hyperdynamic, estimated at >70%. There is mildly increased left ventricular wall thickness. The left ventricular diastolic function is grade I diastolic dysfunction. Right Ventricle Right ventricular systolic function is reduced based on abnormal TAPSE 1.6 cm. Right ventricular chamber dimension is not well visualized. Left Atria Left atrial chamber dimension is normal. Right Atria Right atrial chamber dimension is normal. Atrial Septum Intact interatrial septum visualized by 2D and agitated saline imaging. Agitated saline injection with and without valsalva maneuver opacified right cardiac chambers without any obvious shunt to left cardiac chambers. Aortic Valve The aortic valve is not well visualized. Cannot determine number of aortic valve leaflets. There is mild to moderate aortic valve stenosis based on a peak velocity of 230 cm/s, mean gradient of 9 mmHg, and aortic valve area of 1.4 cm2. There is moderate aortic valve sclerosis. There is no aortic valve regurgitation. Pulmonic Valve The pulmoni
[2022-03-04] MEDS: ALBUTEROL SULFATE NEB 2.5 MG/0.5 ML INH INHALATION ×4 (08:05→20:33)
[2022-03-04] MEDS: IPRATROPIUM BR 0.02% INH SOLN 0.5 MG/2.5 ML VIAL INHALATION ×4 (08:05→20:33)
[2022-03-04] MEDS: oxyCODONE HCL (*CRX) 5 MG TAB IR PO (08:28)
[2022-03-04] MEDS: oxyCODONE/ACETAMINOPHEN (*CRX) 5-325 MG TABLET 1 TABLET PO ×2 (08:28→20:53)
[2022-03-04] MEDS: GABAPENTIN 400 MG CAPSULE PO ×4 (08:30→20:45)
[2022-03-04] MEDS: ASCORBIC ACID 500 MG TABLET 1000 MG PO ×3 (08:31→16:50)
[2022-03-04] MEDS: AZITHROMYCIN 250 MG TABLET 500 MG PO (08:31)
[2022-03-04] MEDS: GABAPENTIN 300 MG CAPSULE 600 MG PO ×4 (08:31→20:45)
[2022-03-04] MEDS: FUROSEMIDE INJ 40 MG/4 ML VIAL IV PUSH ×3 (08:31→16:50)
[2022-03-04] MEDS: BACLOFEN 10 MG TABLET 30 MG PO ×4 (08:31→20:45)
[2022-03-04] MEDS: MONTELUKAST SODIUM 10 MG TABLET PO (08:32)
[2022-03-04] MEDS: PANTOPRAZOLE 40 MG TABLET PO (08:32)
[2022-03-04] MEDS: APIXABAN 5 MG TABLET PO ×2 (08:32→20:45)
[2022-03-04] MEDS: POTASSIUM CHLORIDE 20 MEQ TABLET.ER PO ×2 (08:32→20:45)
[2022-03-04] MEDS: guaiFENesin 12 HR 600 MG TABCR 1200 MG PO ×2 (08:32→20:45)
[2022-03-04] MEDS: GENTAMICIN SULFATE 0.3% OP SOL 5 ML BTL 1 DROP EACH EYE (08:32)
[2022-03-04] MEDS: VITAMIN B COMPLEX CAPSULE 1 CAP PO (08:32)
[2022-03-04] MEDS: NEOMYCIN/POLYMYXIN/BACITRACIN OINTMENT 15 GM TUBE 1 APPLIC TOPICAL (08:34)
[2022-03-04 08:43] LABS: Glucose Point of Care 240 mg/dl (65-105)
[2022-03-04] MEDS: INSULIN ASPART (*BKC) 100 UNITS/ML SUB-Q ×3 (08:43→18:51)
[2022-03-04] MEDS: guaiFENesin/DEXTROMETHORPHAN 10 ML UDC PO ×2 (08:43→16:48)
[2022-03-04] MEDS: diphenhydrAMINE HCl CAP 25 MG CAPSULE PO (08:44)
[2022-03-04] MEDS: PERFLUTREN LIPID MICROSPHERES 1.5 ML VIAL DILUTED TO 10 ML TOTAL VOLUME IV PUSH (09:55)
--- NOTE | 2022-03-04 09:55 | IVDEFINITY ---
Prior to administration of IV Definity the patient was educated on the risks and benefits of the imaging enhancing agent including potential adverse side effects. The patient verbalized understanding. Allergies were verified. No exclusion criteria were identified and at least one of the following inclusion criteria were met: 1) physician request, 2) patient technically difficult to image (per the [place] [employer] guidelines of two or more segments not discernable within the apical view), or 3) questionable left ventricular function. ?
[2022-03-04 12:02] LABS: Glucose Point of Care 331 mg/dl (65-105)
--- NOTE | 2022-03-04 12:13 | PHAR ---
HOME SUPPLEMENTS THESE HAVE NO DISTINCT MARKINGS SO CANNOT BE VERIFIED CINNAMON 1000MG PER 2 CAPSULES SUPER VITAMIN B-COMPLEX VITAMIN D 3 2,000 IU SOFTGELS B12 500 MCG MICROLOZENGES
--- NOTE | 2022-03-04 12:39 | PM.IMPN ---
Progress Note: A&P Assessment and Plan (1) Acute on chronic respiratory failure: Qualifiers: Respiratory failure complication: hypoxia Qualified Code(s): J96.21 - Acute and chronic respiratory failure with hypoxia Code(s): J96.20 - Acute and chronic respiratory failure, unspecified whether with hypoxia or hypercapnia Status: Acute Assessment and Plan: Multifactorial most likely related to community-acquired pneumonia COPD exacerbation CHF exacerbation pulmonary hypertension diuresis nebulizer treatment IV steroid antibiotics DCed IV cefepime Continue IV Rocephin IV azithromycin day 5 patient will require total of 7 days of antibiotic. Finished his azithromycin today Still short of breath. Will continue IV antibiotics on steroid IV BiPAP as needed (2) Community acquired pneumonia: Qualifiers: Laterality: right Lung location: lower lobe of lung Qualified Code(s): J18.9 - Pneumonia, unspecified organism Code(s): J18.9 - Pneumonia, unspecified organism Status: Acute Assessment and Plan: Continue IV antibiotics Follow-up blood culture (3) Pulmonary hypertension: Code(s): I27.20 - Pulmonary hypertension, unspecified Status: Acute Assessment and Plan: Continue home treatment (4) Acute exacerbation of CHF (congestive heart failure): Code(s): I50.9 - Heart failure, unspecified Status: Acute Assessment and Plan: IV diuresis improved Echo pending (5) Wound of lower extremity: Code(s): S81.809A - Unspecified open wound, unspecified lower leg, initial encounter Status: Acute Assessment and Plan: Wound care consult (6) Acute hyponatremia: Code(s): E87.1 - Hypo-osmolality and hyponatremia Status: Acute Assessment and Plan: Fluid restriction 1800 mL per day continue IV diuresis improved Additional Plan Candidal vaginitis Diflucan Chronic indwelling Valenzuela catheter changed on 02 February Subjective Date/time seen: 03/04/22 12:39 Interval history: 61 years old female with past medical history of COPD presented to the hospital with shortness of breath was found to have acute hypoxemic respiratory failure secondary to COPD exacerbation CHF exacerbation and community-acquired pneumonia treated with nebulizer treatment steroid antibiotic On chronic oxygen therapy 4 L and trilogy 03/03/2022 patient continues to have cough and shortness of breath on exertion. She was feeling well yesterday with not feeling so well today. She wants to start back on her senna mom, cranberry, vitamin B complex. Dislikes her fluid restrictions as well. 03/04/2022 patient complains about however she is not getting her vitamin B complex cranberry cinnamom supplements and wants to have them while she is here. She also complains about not being able to get both of the cough syrup with the same time. She talks less about her breathing problem to me Review of Systems Review of Systems: All systems reviewed & are unremarkable except as noted in HPI and below Exam Narrative: Const: General: Not in acute distress patient with morbid obesity HENMT: Mouth: Yes moist mucous membranes using BiPAP intermittently during our visit Eyes: Sclera: sclerae normal Neck: Nontender, supple Resp: Coarse breath sound no active wheezing heard Cardio: Rate: regular rate Rhythm: regular rhythm GI: Inspection: non-distended GI Palp: Yes Soft to palpation Skin: General skin exam: normal color Wounds: wounds noted Extrem: Bilateral lower extremity nonpitting edema present, no cyanosis or clubbing Psych: Mental Status: mental status grossly normal : Valenzuela in place Objective Data Vital Signs Vital Signs: Vital Signs - 24 hr 03/03/22 12:48 03/03/22 16:00 03/03/22 16:05 Temperature 96.9 F L Pulse Rate 80 82 74 Respiratory Rate 20 18 Blood Pressure 107/82 Pulse Oximetry 99 03/03/22 16:12
[2022-03-04] MEDS: methylPREDNISolone SOD SUCC 40 MG VIAL 20 MG IV PUSH ×2 (13:03→16:38)
[2022-03-04] MEDS: METOPROLOL SUCCINATE EXT REL 25 MG TABCR PO (13:04)
[2022-03-04] MEDS: PROMETHAZINE/CODEINE (*CRX) 5 ML SYRUP BY MOUTH ×2 (13:29→20:54)
[2022-03-04] MEDS: traMADol HCL (*CRX) 50 MG TABLET PO (16:38)
[2022-03-04 17:12] LABS: Glucose Point of Care 263 mg/dl (65-105)
[2022-03-04] MEDS: DORNASE ALFA INH SOLN 1 MG/ML 2.5 ML AMP 2.5 MG INHALATION (20:33)
[2022-03-04] MEDS: ATORVASTATIN 10 MG TABLET PO (20:44)
[2022-03-04] MEDS: FERROUS SULFATE 324 MG TABLET PO (20:44)
[2022-03-04] MEDS: VERAPAMIL HCL 180 MG TABLET ER PO (20:45)
[2022-03-04 20:59] LABS: Glucose Point of Care 349 mg/dl (65-105)
--- NOTE | 2022-03-04 21:35 | PC.NURSE ---
pt uncooperative , making racial remarks towards staff, refusing nursing care and insulin despite education provided. zinc furnace charger aware and present in room. [facility] notified and aware of ongoing issues with pt compliance
--- NOTE | 2022-03-04 22:48 | PCRCNOTE ---
Pt ordered a repeat overnight oximetry study to be done while on AVAPS at 28% (previous study done on 35% night of 03/03). Pt was unsure if she wanted to do repeat study on lower FiO2. When it was time to start the study, pt was extremely agitated and talking with Paginator. Pt stated that she does not want to do the study again and does not want less oxygen.
[2022-03-04 22:55] LABS: Glucose Point of Care 301 mg/dl (65-105)
[2022-03-04] MEDS: INSULIN ASPART (*BKC) 100 UNITS/ML 8 UNITS SUB-Q (23:34)
[2022-03-05] VITALS (11 sets, daily range): BP systolic 124; BP diastolic 90; PULSE 63–80; RESP 16–20; TEMP 36.1; O2SAT 93–100
[2022-03-05] MEDS: IPRATROPIUM BR 0.02% INH SOLN 0.5 MG/2.5 ML VIAL INHALATION ×4 (00:46→15:52)
[2022-03-05] MEDS: ALBUTEROL SULFATE NEB 2.5 MG/0.5 ML INH INHALATION ×4 (00:46→15:52)
[2022-03-05 06:04] LABS: Basophils Percent Auto 0.1 % (0.2-1.2); Eosinophils Percent Auto 0.2 % (0-4.4); Hematocrit 42.5 % (37.0-47.0); Hemoglobin 13.1 g/dL (12.0-15.0); Immature Granulocyte Absolute 0.08 K/mm3 (0.00-0.031); Immature Granulocyte Percent A 0.5 % (0-0.5); Lymphocytes Absolute Auto 1.88 K/mm3 (0.9-3.2); Lymphocytes Percent Auto 12.5 % (18.3-44.2); Mean Corpuscular HGB Conc 30.8 g/dl (32-36); Mean Corpuscular Hemoglobin 28.5 pg (26-34); Mean Corpuscular Volume 92.6 fl (80-100); Mean Platelet Volume 8.6 fl (7.4-10.4); Monocytes Absolute Auto 1.1 K/mm3 (0.1-0.6); Monocytes Percent Auto 7.5 % (2.6-8.5); Neutrophils Absolute Auto 11.9 K/mm3 (1.3-6.7); Neutrophils Percent Auto 79.2 % (45.5-73.1); Platelet Count Result 382 k/mm3 (150-375); Red Blood Count 4.59 M/mm3 (4.2-5.4); Red Cell Distribution Width 14.7 % (11.5-14.5)
[2022-03-05 06:17] LABS: Alanine Aminotransferase 37 U/L (4-35); Albumin Level 3.8 g/dL (3.5-5.1); Alkaline Phosphatase 81 U/L (38-126); Anion Gap 2 mmol/L (8-16); Aspartate Amino Transferase 27 U/L (14-36); Bilirubin,Total 0.4 mg/dL (0.2-1.3); Blood Urea Nitrogen 24 mg/dL (7-17); Calcium 9.3 mg/dL (8.4-10.2); Carbon Dioxide 38 mmol/L (22-30); Chloride 92 mmol/L (98-107); Estimated CRCL calculation 107 ml/min; Estimated Glomerular Filt Rate > 60; Glucose 221 mg/dL (65-110); Magnesium 2.3 mg/dL (1.6-2.3); Potassium 4.7 mmol/L (3.4-5.0); Sodium 132 mmol/L (137-145)
[2022-03-05] MEDS: oxyCODONE HCL (*CRX) 5 MG TAB IR PO (06:24)
[2022-03-05 07:43] LABS: Glucose Point of Care 184 mg/dl (65-105)
[2022-03-05] MEDS: DORNASE ALFA INH SOLN 1 MG/ML 2.5 ML AMP 2.5 MG INHALATION (07:48)
[2022-03-05] MEDS: MONTELUKAST SODIUM 10 MG TABLET PO (09:44)
[2022-03-05] MEDS: BACLOFEN 10 MG TABLET 30 MG PO (09:44)
[2022-03-05] MEDS: ASCORBIC ACID 500 MG TABLET 1000 MG PO (09:44)
[2022-03-05] MEDS: FUROSEMIDE INJ 40 MG/4 ML VIAL IV PUSH (09:45)
[2022-03-05] MEDS: GABAPENTIN 400 MG CAPSULE PO (09:45)
[2022-03-05] MEDS: guaiFENesin 12 HR 600 MG TABCR 1200 MG PO (09:45)
[2022-03-05] MEDS: GABAPENTIN 300 MG CAPSULE 600 MG PO (09:45)
[2022-03-05] MEDS: GENTAMICIN SULFATE 0.3% OP SOL 5 ML BTL 1 DROP EACH EYE (09:46)
[2022-03-05] MEDS: POTASSIUM CHLORIDE 20 MEQ TABLET.ER PO (09:46)
[2022-03-05] MEDS: APIXABAN 5 MG TABLET PO (09:46)
--- NOTE | 2022-03-05 09:46 | PM.PNPUL ---
Progress Note: A&P Assessment and Plan (1) Chronic obstructive pulmonary disease: Qualifiers: COPD type: emphysema Emphysema type: unspecified Qualified Code(s): J43.9 - Emphysema, unspecified Code(s): J44.9 - Chronic obstructive pulmonary disease, unspecified Status: Acute Assessment and Plan: 61-year-old woman with a history of COPD with a post bronchodilator FEV1 of 1.03, 46% predicted on 01/07/2020, centrilobular emphysema on CT scan from 05/27/2014, chronic hypercarbic and hypoxemic respiratory failure requiring a home trilogy noninvasive ventilator with an AVAPS-AE mode and 2 L bleed in at night, 3-4 L oxygen during the day, severe pulmonary hypertension first documented by echo in 05/27/2014 with RVSP 55, with RV hypokinesis and RVSP 107 on most recent echo from 06/03/2019. History of PE on 05/27/2014, atrial fibrillation on Eliquis 5 p.o. b.i.d. baseline she is nonambulatory from gout, peripheral neuropathy and arthritis, she is in bed most of the day and at time she can get up to her motorized wheelchair at home. The patient was scheduled in pulmonary clinic on 12/21/2020 and 01/19/2022 but was not present. 03/03 She presented on 02/26/2022 with COPD exacerbation, community-acquired pneumonia and congestive heart failure. Patient was treated with steroids, bronchodilators, antibiotics and Lasix and improved up until 03/03 when her IV steroids were discontinued. Overall today she tells me the she is improved since admission but somewhat worse than 03/02. Patient is currently wheezing and was placed on Solu-Medrol and I will change the dose to 40 mg IV q.6 hours. I will continue her ipratropium 0.5 mg nebs q.4 hours and albuterol 2.5 mg nebs q.4 hours standing at this time. Patient is expectorated in her sputum better today. I will continue guaifenesin 600 mg p.o. b.i.d. and a Cornet flutter valve. 03/04 Overall she states she is doing better today than yesterday. She is communicating easily and on 4 L nasal cannula with saturations 95%. She has no wheezing today. She does states she has trouble expectorating her phlegm and I will start Pulmozyme. Her BNP is 300 and I have increased her Lasix to 40 IV b.i.d.. I will decrease her Solu-Medrol to 20 q.6. Today is her last dose of azithromycin. She remains on ceftriaxone (day 7). 03/05 She has no wheezes on exam. She states her phlegm is minimal. Today is day 8 of ceftriaxone. She diuresed well with Lasix 40 IV b.i.d. with -1.6 L and cumulative -7.3 since admission. Overall she states she is doing well and is at her baseline and ready for discharge today. From a pulmonary perspective the patient is ready for discharge on these pulmonary medicines. Prednisone 40 mg p.o. q.day x3 days, then 30 mg p.o. X3 days, then 20 mg p.o. q.day x3 days, then 10 mg p.o. q.day x3 days then off Trelegy 200/62.5/25 at 1 puff q.day Albuterol 2 puffs Q 4-6 hours p.r.n. shortness of breath and wheezing Xopenex nebulizers 1.25 mg Q 4-6 hours p.r.n. shortness of breath and wheezing Guaifenesin 12 hour tablets, 1200 mg p.o. Q 12 hours Montelukast 10 mg p.o. Q day Oxygen at rest and with ambulation at 3-4 L (she monitors her own pulse oximetry at home) When she sleeps she should use her home trilogy: AVAPS-AE mode with a rate set at auto, tidal volume 400, EPAP Min 4 with EPAP max 10, minimal pressure support 2, maximal pressure support 8 with 2 L bleed in Lasix 80 mg PO BID Follow-up in pulmonary clinic in 2-3 weeks. I gave her our business card and have informed our pharmacy scheduler. Discussed with Dr. Lucas (2) Community acquired pneumonia: Qualifiers: Laterality: right Lung location: lower lobe of lung Qualified Code(s): J18.9 - Pneumonia, unspecified organism Code(s): J18.9 - Pneumonia, unspecified organism Status: Acute Assessment and Plan: 03/03 Regarding her community-acquired pneumonia. She was COVID negative and influenza negative on admission. Marisol
[2022-03-05] MEDS: PANTOPRAZOLE 40 MG TABLET PO (09:47)
[2022-03-05] MEDS: NEOMYCIN/POLYMYXIN/BACITRACIN OINTMENT 15 GM TUBE 1 APPLIC TOPICAL (09:47)
[2022-03-05 11:43] LABS: Glucose Point of Care 222 mg/dl (65-105)
[2022-03-05] MEDS: INSULIN ASPART (*BKC) 100 UNITS/ML SUB-Q (11:50)
[2022-03-05] MEDS: methylPREDNISolone SOD SUCC 40 MG VIAL 20 MG IV PUSH (11:50)
[2022-03-05] MEDS: METOPROLOL SUCCINATE EXT REL 25 MG TABCR PO (11:53)
--- NOTE | 2022-03-05 12:42 | PM.DS ---
DS: Admitting Diagnosis Discharge Date 03/05/2022 Admitting Diagnosis Shortness of breath DS: Discharge Diagnosis Discharge Diagnosis (1) Acute on chronic respiratory failure: Qualifiers: Respiratory failure complication: hypoxia Qualified Code(s): J96.21 - Acute and chronic respiratory failure with hypoxia Code(s): J96.20 - Acute and chronic respiratory failure, unspecified whether with hypoxia or hypercapnia Status: Acute Assessment and Plan: Multifactorial most likely related to community-acquired pneumonia, COPD exacerbation, CHF exacerbation pulmonary hypertension diuresis nebulizer treatment IV steroid antibiotics DCed IV cefepime Continue IV Rocephin IV azithromycin. Finished antibiotics in hospital stay Still short of breath. Will continue IV antibiotics on steroid IV BiPAP as needed Pulmonary was consulted in hospital stay and put on steroid IV more days and was tapered down to prednisone at the time of discharge. (2) Community acquired pneumonia: Qualifiers: Laterality: right Lung location: lower lobe of lung Qualified Code(s): J18.9 - Pneumonia, unspecified organism Code(s): J18.9 - Pneumonia, unspecified organism Status: Acute Assessment and Plan: Continue IV antibiotics and finish the course during the hospital stay. Follow-up blood culture which was negative (3) Pulmonary hypertension: Code(s): I27.20 - Pulmonary hypertension, unspecified Status: Acute Assessment and Plan: Continue home treatment Echo showed RVSP much better down to 46 mm Hg (4) Acute exacerbation of CHF (congestive heart failure): Code(s): I50.9 - Heart failure, unspecified Status: Acute Assessment and Plan: IV diuresis improved Echo with RVSP 46 mm Hg now she has to have severe pulmonary hypertension in the past Continue Lasix 80 mg p.o. b.i.d. as recommended by Pulmonary (5) Wound of lower extremity: Code(s): S81.809A - Unspecified open wound, unspecified lower leg, initial encounter Status: Acute Assessment and Plan: Wound care consult (6) Acute hyponatremia: Code(s): E87.1 - Hypo-osmolality and hyponatremia Status: Acute Assessment and Plan: Fluid restriction 1800 mL per day continue IV diuresis improved DS: Summary Hospital Course Hospital Course: See above Time Spent with Patient Time attestation: Total time spent providing and/or coordinating discharge services: 50 minutes Exam Narrative: Const: General: Not in acute distress patient with morbid obesity HENMT: Mouth: Yes moist mucous membranes on oxygen via nasal cannula Eyes: Sclera: sclerae normal Neck: Nontender, supple Resp: Coarse breath sound no active wheezing heard Cardio: Rate: regular rate Rhythm: regular rhythm GI: Inspection: non-distended GI Palp: Yes Soft to palpation Skin: General skin exam: normal color Wounds: wounds noted Extrem: Bilateral lower extremity nonpitting edema present, no cyanosis or clubbing Psych: Mental Status: mental status grossly normal : Valenzuela in place DS: Data Data Completed and Pending Completed studies during hospitalization: Exam Type: CA echo dop bubble study w con Study Info Indications - hypoxia, assess for pfo Complete two-dimensional, color flow and Doppler transthoracic echocardiogram is performed with contrast to opacify the left ventricle and to improve the deliniation of the left ventricle endocardial borders. Complete two-dimensional, color flow and Doppler transthoracic echocardiogram is performed with agitated saline. Contrast/Agitated Saline Contrast/Ag. Saline: Agitated Saline Amount: 20.00 ml Existing IV Access: Yes IV Access Condition: patent with no signs of infiltration Contrast/Ag. Saline: Definity Amount:
== END 2022-03-05 16:10 | disposition home health service (06) | DRG 193 ==
LOC: ANHED 02-26 01:10 → ANHIMU 02-26 01:11 → ANH3MEDSUR 02-26 12:55
PROVIDERS: Internal Medicine; Internal Medicine Pulmonary Disease; Physician Assistant; Admitting Provider Internal Medicine; Emergency Provider Emergency Medicine; Visit Provider Internal Medicine
DX: J18.9 Pneumonia, unspecified organism (principal); J96.21 Acute and chronic respiratory failure with hypoxia; I50.33 Acute on chronic diastolic (congestive) heart failure; E87.1 Hypo-osmolality and hyponatremia; I27.20 Pulmonary hypertension, unspecified; Z20.822 Contact with and (suspected) exposure to COVID-19; E10.42 Type 1 diabetes mellitus with diabetic polyneuropathy; Z87.891 Personal history of nicotine dependence; Z79.899 Other long term (current) drug therapy; Z79.891 Long term (current) use of opiate analgesic; S81.809A Unspecified open wound, unspecified lower leg, initial encounter; B37.3 Candidiasis of vulva and vagina; Z99.81 Dependence on supplemental oxygen; J43.9 Emphysema, unspecified
CPT/HCPCS: 36415; 36600; 71045; 71250; 80053; 81001; 82375; 82805; 82948; 83050; 83735; 83880; 84145; 84439; 84443; 85025; 85610; 85730; 87040; 87070; 87086; 87205; 87502; 93005; 94002; 94640; 94667; 94762; 96365; 96367; 96375; 96376; 99285; A9270; C8929; C9803; G0378; J0456; J0692; J0696; J1815; J1940; J2060; J2920; J2930; Q9957; U0003; U0005

== ENCOUNTER 2024-08-06 10:25 | Outpatient (CLI) | payer MEDICARE, MEDICAID, SELFPAY ==
--- NOTE | ~2024-08-06 | CT_ITS ---
CT Scan of the Chest without Contrast: Clinical Indication: Lung cancer screening, nicotine dependence Technique: Contiguous sections were acquired throughout the chest without intravenous contrast. Dose reduction technique was used on this scan by utilizing automated exposure control and iterative recon struction technique. The dose-length product (DLP) was 614.25 mGy-cm. COMPARISON: 02/26/2022 Findings: There is no evidence of any significant mediastinal, hilar or axillary lymphadenopathy. There are ext ensive atherosclerotic calcifications of the aorta and coronary arteries. There is no evidence of pleural or pericardial effusion. 2 mm calcified right apical granuloma present. There is mild to moderate emphysema. There is bibasila r atelectatic change. Images through the upper abdomen reveal no abnormalities. Impression: Lung RADS 2: Benign appearance. 12 month follow-up screening CT advised. Reviewed, dictated and finalized at [facility]. Impression: Lung RADS 2: Benign appearance. 12 month follow-up screening CT advised.
== END 2024-08-06 10:26 | disposition home or self-care (01) ==
PROVIDERS: Visit Provider Internal Medicine Pulmonary Disease
DX: Z12.2 Encounter for screening for malignant neoplasm of respiratory organs (principal); Z87.891 Personal history of nicotine dependence
CPT/HCPCS: 71271